=== PATIENT | female | born 1960 | race Caucasian/White ===

== ENCOUNTER → 2016-06-05 | Outpatient (CLI) | payer OTHER ==
[2016-06-05 14:37] LABS: Non-African American GFR(MDRD) >60 (>60 ml/min/1.73 sqM)
--- NOTE | 2016-06-05 15:46 | US ---
EXAMINATION TYPE: US kidneys/renal and bladder DATE OF EXAM: 06/05/2016 2:07 PM COMPARISON: Nuclear medicine Lasix renogram December 17, 2015. CLINICAL HISTORY: Hydronephrosis N13.5. Rt side stent placed on -- had it removed. Hx of LK tube. EXAM MEASUREMENTS: Right Kidney: 9.7 x 5.4 x 5.2 cm Left Kidney: 10.0 x 4.6 x 4.6 cm TECHNOLOGIST IMPRESSION: Right Kidney: wnl Left Kidney: medial anechoic lesion at hilum= 1.5 x 2.2 x 1.4 cm Bladder: mildly distended, wnl as visualized Right Jet seen There is no evidence for hydronephrosis at this point in time in the right kidney. There is pelvic pr ominence left kidney with suspected calyceal dilatation, suspect mild hydronephrosis. No nephrolithia sis is seen. No masses are identified on images saved. Bladder is poorly distended without intralumi nal mass or wall thickening. Distal right ureter jet is seen. The left jet is not clearly identified. IMPRESSION: Mild recurrent left-sided hydronephrosis is suspected.
== END | disposition home or self-care (01) ==
LOC: RADUSWWP 13:29
PROVIDERS: ATTEND Urology
DX: N35.9 Urethral stricture, unspecified (principal)
CPT/HCPCS: 36415; 76770; 82565

== ENCOUNTER → 2019-11-13 | Outpatient (CLI) | payer OTHER ==
[2019-11-13 14:38] LABS: HCT 37.3 % (34.0-46.0); HGB 12.3 gm/dL (11.4-16.0); MCV 93.9 fL (80.0-100.0); Mean Platelet Volume 8.7; Platelet Count 177 k/uL (150-450); RBC 3.97 m/uL (3.80-5.40); RDW 13.4 % (11.5-15.5); WBC 6.9 k/uL (3.8-10.6)
[2019-11-13 14:46] LABS: ALT 17 U/L (4-34); AST 18 U/L (14-36); African American GFR (CKD) >90 (>60 ml/min/1.73 sqM); Albumin 3.7 g/dL (3.5-5.0); Alkaline Phosphatase 109 U/L (38-126); Anion Gap 7 mmol/L; Blood Urea Nitrogen 15 mg/dL (7-17); Calcium 9.4 mg/dL (8.4-10.2); Carbon Dioxide 27 mmol/L (22-30); Chloride 105 mmol/L (98-107); Glucose 125 mg/dL (74-99); Non-African American GFR(CKD) 84 (>60 ml/min/1.73 sqM); Potassium 4.2 mmol/L (3.5-5.1); Sodium 139 mmol/L (137-145); Total Bilirubin 0.4 mg/dL (0.2-1.3); Total Protein 6.5 g/dL (6.3-8.2)
[2019-11-13 14:48] LABS: Appearance,Urine Clear (Clear); Bilirubin,Urine Negative (Negative); Blood,Urine Negative (Negative); Color,Urine Yellow; Glucose,Urine (UA) Negative (Negative); Ketones,Urine Negative (Negative); Leukocyte Esterase,Urine Large (Negative); Mucus,Urine Rare /hpf; Nitrite,Urine Negative (Negative); PH, Urine 7.5 (5.0-8.0); Protein,Urine Negative (Negative); RBC,Urine 1 /hpf (0-5); Specific Gravity,Urine 1.018 (1.001-1.035); Squamous Epithelial Cell,Urine 1 /hpf (0-4); Urobilinogen,Urine <2.0 mg/dL (<2.0); WBC,Urine 24 /hpf (0-5)
[2019-11-13 14:56] LABS: INR 0.9 (<1.2); Partial Thromboplastin Time 23.4 sec (22.0-30.0); Prothrombin Time 9.8 sec (9.0-12.0)
== END | disposition home or self-care (01) ==
LOC: LABPAT 12:54
PROVIDERS: ATTEND Orthopaedic Surgery
DX: Z01.810 Encounter for preprocedural cardiovascular examination (principal); Z01.812 Encounter for preprocedural laboratory examination
CPT/HCPCS: 36415; 80053; 81001; 85027; 85610; 85730; 87070; 93005

== ENCOUNTER 2019-12-12 07:26 | Day surgery (SDC) | payer OTHER ==
[2019-11-29 11:27] VITALS: BMI 41.0
[~2019-12-12 07:26] MED LIST: ACETAMINOPHEN TAB 500 MG TAB PO ONE; DEXAMETHASONE SOD PHOSPHATE 10 MG/ML 1 ML VIAL IV ONE; GABAPENTIN 300 MG CAP PO ONE; HYDROmorphone 0.5 MG/0.5 ML SYRINGE IVP PRN; LIDOCAINE 1% (10MG/ML) FOR IV START INTRADERMA PRN; MELOXICAM 7.5 MG TAB PO ONE; MIDAZOLAM 2 MG/2 ML VIAL IV PRN; ONDANSETRON 4 MG/2 ML VIAL IVP ONE; TRANEXAMIC ACID 1,000 MG in SODIUM CHLORIDE 0.9% 100 ML IVPB ONE; fentaNYL (PF) 50 MCG/ML 2 ML AMP IV PRN
[2019-12-12] MEDS ORDERED: ACETAMINOPHEN TAB 500 MG TAB ONE (07:44)
[2019-12-12] MEDS ORDERED: ONDANSETRON 4 MG/2 ML VIAL ONE (07:44)
[2019-12-12] MEDS: LACTATED RINGERS 1,000 ML IV SCH (08:22)
[2019-12-12] MEDS ORDERED: HYDROcodone/APAP 5-325MG 1 EACH TAB PO PRN (08:41)
[2019-12-12] MEDS ORDERED: MAGNESIUM HYDROXIDE 2,400 MG/10 ML CUP PO PRN (08:41)
[2019-12-12] MEDS ORDERED: bisacodyL 10 MG SUPP RECTAL PRN (08:41)
[2019-12-12] MEDS ORDERED: NA PHOS,M-B/NA PHOS,DI-BA 133 ML ENEMA RECTAL PRN (08:41)
[2019-12-12] MEDS ORDERED: NALOXONE 0.4 MG/ML 1 ML VIAL IV PRN (08:41)
[2019-12-12] MEDS ORDERED: ONDANSETRON 4 MG/2 ML VIAL IVP PRN (08:41)
[2019-12-12] MEDS ORDERED: HYDROmorphone 0.5 MG/0.5 ML SYRINGE IVP PRN ×2 (08:41)
[2019-12-12] MEDS ORDERED: HYDROmorphone 1 MG/ML 1 ML SYRINGE IVP PRN (08:41)
[2019-12-12] MEDS ORDERED: SODIUM CHLORIDE 0.9% 1,000 ML BAG ONE (09:08)
[2019-12-12] MEDS ORDERED: LIDOCAINE 1% INJ 10MG/ML (20 ML MDV) ONE (09:08)
[2019-12-12] MEDS ORDERED: PROPOFOL 10 MG/ML 20 ML VIAL IV ONE (09:08)
[2019-12-12] MEDS ORDERED: SUCCINYLCHOLINE CHLORIDE 100 MG/5 ML SYR IV ONE (09:08)
[2019-12-12] MEDS ORDERED: TRANEXAMIC ACID 1,000 MG/10 ML VIAL ONE (09:08)
[2019-12-12] MEDS ORDERED: MIDAZOLAM 2 MG/2 ML VIAL ONE (09:08)
[2019-12-12] MEDS ORDERED: fentaNYL (PF) 50 MCG/ML 2 ML AMP ONE (09:08)
[2019-12-12] MEDS ORDERED: ceFAZolin 3,000 MG in SODIUM CHLORIDE 0.9% IRRIGATIO 3,000 ML IRRIGATION ONE (09:11)
[2019-12-12] MEDS: ROPIVACAINE 246.25 MG, EPINEPHrine 0.5 MG, KETOROLAC 30 MG, cloNIDine HCL/PF 80 MCG, WA... MISCELLANE ONE ×10 (09:46→10:29)
--- NOTE | 2019-12-12 09:52 | P.ANPRN ---
Procedure Note - Anesthesia - Nerve Block Performed Left Adductor Canal Infusion Time Out Performed: Yes ([id number]) Date of Procedure: 12/12/19 Procedure Start Time: 08:45 Procedure Stop Time: 08:51 Location of Patient: PreOp Indication: Acute Post-Operative Pain, Requested by Surgeon Specifically requested for management of pain by DrShanon: Wilber Rodriguez Sedation Type: Sedate with meaningful contact maintained Preparation: Sterile Prep Position: Supine Catheter Depth at Skin (cm): 8 Catheter: Indwelling Needle Types: Pajunk Needle Gauge: 18 Ultrasound used to visualize needle placement: Yes Ultrasound used to observe medication spread: Yes Injectate: 0.5% Ropivacaine (see comment for volume) (20cc) Blood Aspirated: No Pain Paresthesia on Injection Noted: No Resistance on Injection: Normal Image Stored and Saved: Yes Events: Uneventful and Well Tolerated
[2019-12-12] MEDS ORDERED: LACTATED RINGERS 1,000 ML IV ONE (10:38)
--- NOTE | 2019-12-12 10:45 | P.OP ---
Date of Procedure: 12/12/19 Preoperative Diagnosis: Severe osteoarthritis left knee Postoperative Diagnosis: Severe osteoarthritis left knee Procedure(s) Performed: Left total knee arthroplasty Implants: [employer]hew Journey II CR Oxinium cruciate retaining femoral component size 4, left [employer] Journey left nonporous tibial baseplate size 3 [employer] Journey II, XLPE Deep Dished articular insert, size 11 mm, Size 3-4 left [employer] Journey BCS resurfacing oval patellar component, 29 mm All components were cemented using Palacos R bone cement.. The articulation is Oxinium on polyethylene. Anesthesia: GETA Surgeon: Wilber Rodriguez Propagator #1: Gabby Fields Estimated Blood Loss (ml): 25 Pathology: other Condition: stable Disposition: PACU Indications for Procedure: After failure of conservative treatment we discussed the surgical and nonsurgical treatment options at length. Patient wishes to proceed with a total knee arthroplasty. Complications specific to this procedure were discussed at length, including but not limited to infection, bleeding, stiffness, and nerve injury. Covid-19 was also discussed at length with the patient, and they are aware of the current policies and procedures. The patient was given the option of delaying surgery, but they elect to proceed knowing these risks. Patient is aware of all these complications and informed consent was obtained Operative Findings: The operative findings are consistent with severe osteoarthritis the left knee Description of Procedure: Patient was seen in the preoperative area consent was reviewed and operative site was marked with a skin marker. An adductor canal pain catheter was placed by anesthesia in the preoperative area. Patient was then brought to the operating room and given preoperative antibiotics intravenously. A general anesthetic was administered by the anesthesia department. A tourniquet was placed on the upper thigh and the lower extremity was prepped and draped in usual sterile fashion. A gram of transexamic acid was given. A universal timeout was then performed which confirmed the patient's name, surgical site, ALLERGIES, and consent. The lower extremity was then exsanguinated and tourniquet was inflated to 250 mmHg. A standard and anterior midline approach to the knee was performed. The skin and subcutaneous tissue was dissected down to the patellar tendon. A medial parapatellar arthrotomy was then performed. The knee was then extended, the patellar was everted, and the knee was again flexed. The patellar fat pad was removed in order to enhance exposure. Anterior horns of both menisci were excised, and a release was performed to the posterior medial aspect of the knee. On gross visual inspection, there was complete loss of articular cartilage in the medial and patellofemoral joint spaces. There was also significant cartilage damage in the lateral compartment. There were multiple periarticular osteophytes which were then removed with a Ronguer. The femoral canal was then opened with the 9.5 mm intramedullary drill. The 8 mm intramedullary lexi was then inserted into the femoral canal. The distal femoral cutting guide was then placed and set for 5 of valgus. The distal femoral cutting block was then pinned in place. The intramedullary lexi was then removed, and the distal femur was then cut. The cutting block was then removed and the cut was checked for symmetry. Next, the sizing guide was then placed and set for 3 external rotation based off of the epicondylar axis and Whitesides line. Pins were then placed and the drill holes, and the femur was sized with the sizing stylus. The pins were then removed, and the sizing guide was then removed. The spikes of the femoral block was then placed into the predrilled holes, and malleted into place. Two 45 mm pins were then placed into the fixation holes on the cutting block. An zulma wing was then used to ensure there would be no notching with the anterior cut. The anterior condyles were cut without notching. The anterior cord cut was then performed, followed by the posterior cut, posterior chamfer cut, and the anterior chamfer cut. The collateral ligaments were protected during the entire process. The cutting block was then removed, and the femoral canal was plugged with autologous bone. Attention was then directed to the tibia. The remaining ACL was removed with a Ronguer, and the tibia was then gently subluxed forward with a large bent knee retractor. Any remaining menisci was excised. The posterior lateral corner was cauterized in order to cauterize the lateral geniculate artery. The extra medullary tibial cutting guide was then placed, set for the appropriate rotation, slope, and depth of resection. The proximal tibia cutting guide was then pinned in place. Proximal tibia was then cut and sized. Next trials were then placed with the appropriate-sized insert. The knee was able to fully extend and flex to 130 and was stable throughout all range of motion. The knee was then extended, patella everted. Patella was then measured, and then using an osteotomy guide, the patella was cut at the appropriate level. The patella was then measured and drilled and the patella trial was then placed. The knee was then taken through range of motion with the patella trial and the patella tracked normally. The knee was then extended patella trial was then removed and the patella was everted. Knee was then flexed and lug holes were drilled through the femoral trial and the femoral trial was then removed. The tibial wa s then exposed, and the tibial broach guide was then pinned in place after it was set for the appropriate rotation to allow for the most coverage without overhang. The tibia was then reamed and broached. The cut surfaces of bone were then irrigated with pulsatile lavage. The posterior structures were injected with the ropivacaine solution. The knee was also irrigated with Irrisept solution. The components were then opened, the cement was mixed, and the components were then cemented in place. The cement was allowed to harden with the knee in full extension. While the cement was hardening, the remaining soft tissues were then injected with a ropivacaine solution, which consisted of 246.25 mg of ropivacaine, 0.5 mg of epinephrine, 30 mg of Toradol, 80 g of clonidine, and 48.45 mL of sterile water, for a total of 100 mL of fluid injected. After the cemented hardened. The tourniquet was released, and hemostasis was obtained. A second gram of transexamic acid was given. The knee was again irrigated. The knee was again taken through range of motion and found to be stable throughout all range of motion of 0-130, and the patella tracked normally. The fascia was then closed with #2 strata fix suture. The subcutaneous tissue was closed with 3-0 Vicryl and 3-0 strata fix. Dermabond glue was used for the skin and placed with the knee in flexion. The patient was placed in a sterile silver dressing. Patient was then transferred to recovery room in stable condition. The operating room assistant LISBETH Jay was required due the complexity surgery and the need for a skilled surgical technology instructor. She assisted in positioning, draping, retraction, and closure of the wound.
[2019-12-12] MEDS ORDERED: ROPIVACAINE 0.2%-NS ON-Q PUMP 1,090 MG, EMPTY PAIN BALL 1 EACH MISCELLANE PRN (11:12)
[2019-12-12 11:22] LABS: Glucose,Whole Blood 138 mg/dL (75-99)
--- NOTE | 2019-12-12 11:42 | XR ---
EXAMINATION TYPE: XR knee limited LT DATE OF EXAM: 12/12/2019 CLINICAL HISTORY: Postoperative evaluation Two views of the left knee are submitted. Identified are changes of total knee arthroplasty with fem oral and tibial components appearing well seated. Postsurgical soft tissue changes are noted. Align ment is anatomic.
[2019-12-12] MEDS: SODIUM CHLORIDE 0.9% 1,000 ML IV SCH ×2 (12:09→22:07)
--- NOTE | 2019-12-12 13:30 | P.CONS ---
History of Present Illness - Reason for Consult Consult date: 12/12/19 Medical management Requesting physician: Wilber Rodriguez - Chief Complaint Left knee surgery - History of Present Illness Consultation: This is a pleasant 59-year-old patient of Dr. Ash. Chronic stable medical conditions include diabetes, hypertension, daily heart syndrome, osteo- arthritis. Patient today underwent left total knee arthroplasty. Slight discomfort in the operative site. No nausea vomiting. Denies any chest pain or short of breath. at the bedside. On a liquid diet clear. Review of systems: GEN.: Tired EYES: None HEENT: None NECK: None RESPIRATORY: None CARDIOVASCULAR: None GASTROINTESTINAL: None GENITOURINARY: Urinary incontinence MUSCULOSKELETAL: Joint pains LYMPHATICS: None HEMATOLOGICAL: None PSYCHIATRY: None NEUROLOGICAL: None Past medical history to include: Diabetes mellitus, hypertension, osteoarthritis, abnormal lesions shaped kidney tubes,QT heart syndrome Social history: Does not smoke. Alcohol occasionally. . Physical examination: VITAL SIGNS: 97.2, 63, 12, 118/63, 97% on 4 L GENERAL: BMI 40.5, laying in bed sleepy. EYES: Pupils equal. Conjunctiva normal. HEENT: External appearance of nose and ears normal, oral cavity grossly normal. NECK: JVD not raised; masses not palpable. HEART: First and second heart sounds are normal; no edema. LUNGS: Respiratory rate normal; clear to auscultation. ABDOMEN: Soft, nontender, liver spleen not palpable, no masses palpable. PSYCH: Able to answer questions. Mood affect normall. MUSCULAR skeletal: Dressing over the left knee NEUROLOGICAL: Cranial nerves grossly intact; no facial asymmetry, power and sensation grossly intact. LYMPHATICS: No lymph nodes palpable in the axilla and neck INVESTIGATIONS, reviewed in the clinical context: Labs from November 12 White count 6.9 hemoglobin 12.3 potassium 4.2 creatinine 0.77 EKG tracing shows prolonged QT and flipped T waves Assessment: -Left total knee arthroplasty -Diabetes mellitus type 2 on oral hypoglycemic -QT heart syndrome -Essential hypertension -Primary osteoarthritis -Morbid Obesity BMI 40.5 Plan: Home medications to be resumed. Follow Accu-Cheks. Patient is in aspirin 325 mg twice a day for DVT prophylaxis per surgery. We'll keep the patient on telemetry monitoring. Care was discussed with the patient has been questions answered. Thank you Dr. Rodriguez Past Medical History Past Medical History: Diabetes Mellitus, Hypertension, Osteoarthritis (OA) Additional Past Medical History / Comment(s): hepatitis age 12, states abnormally shaped kidney tubes., states q-t heart syndrome. History of Any Multi-Drug Resistant Organisms: None Reported Past Surgical History: Section, Hysterectomy, Orthopedic Surgery Additional Past Surgical History / Comment(s): tubes and stents in kidneys and removed., x3, partial hysterectomy and then ovaries later removed. total left knee 11/2019 Past Anesthesia/Blood Transfusion Reactions: Postoperative Nausea & Vomiting (PONV) Past Psychological History: No Psychological Hx Reported Smoking Status: Never smoker Past Alcohol Use History: Occasional Past Drug Use History: None Reported - Past Family History Mother Family Medical History: Cancer Additional Family Medical History / Comment(s): uterine cancer Father Family Medical History: Cancer Additional Family Medical History / Comment(s): lung cancer Medications and Allergies Home Medications Medication Instructions Recorded Confirmed Type Aspirin [Adult Low Dose Aspirin EC] 81 mg PO DAILY 11/29/19 12/12/19 History Atorvastatin [Lipitor] 20 mg PO HS 11/29/19 12/12/19 History Cinnamon Bark [Cinnamon] 1,000 mg PO DAILY 11/29/19 12/12/19 History Furosemide [Lasix] 20 mg PO DAILY 11/29/19 12/12/19 History Garlic 1 each PO DAILY 11/29/19 12/12/19 History Glucosamine Sulfate 2,000 mg PO DAILY 11/29/19 12/12/19 History Irbesartan [Avapro] 150 mg PO DAILY 11/29/19 12/12/19 History Isosorbide Mononitrate [Isosorbide 30 mg PO DAILY 11/29/19 12/12/19 History Mononitrate ER] Magnesium 250 mg PO HS 11/29/19 12/12/19 History Milk Thistle 175 mg PO DAILY 11/29/19 12/12/19 History Naproxen Sodium [Aleve] 440 mg PO HS PRN 11/29/19 12/12/19 History Propranolol HCl 60 mg PO HS 11/29/19 12/12/19 History Ubidecarenone [Co Q-10] 50 mg PO DAILY 11/29/19 12/12/19 History metFORMIN HCL [Glucophage] 500 mg PO BID-W/MEALS 08/12/20 08/25/20 History Allergies Allergy/AdvReac Type Severity Reaction Status Date / Time azithromycin AdvReac Unknown states Verified 12/12/19 07:50 [From Zithromax Z-Sylvester] car shifter told her not to take. levofloxacin [From Levaquin] AdvReac Unknown states Verified 12/12/19 07:50 car shifter told her not to take. Narcotics AdvReac Unknown Rapid Uncoded 12/12/19 07:50 Heart Rate Physical Exam Vitals: Vital Signs Temp Pulse Resp BP Pulse Ox 12/12/19 11:33 61 16 129/69 97 12/12/19 11:18 62 14 125/67 97 12/12/19 11:03 97.2 F L 63 12 118/63 93 L 12/12/19 08:45 62 16 144/66 96 12/12/19 08:00 97.1 F L 64 16 143/82 95 Intake and Output 12/11/19 12/12/19 12/12/19 22:59 06:59 14:59 Intake Total 1501 Output Total 25 Balance 1476 Intake: IV 1501 Output: Estimated Blood Loss 25 Other: Weight 94 kg Results Labs: Abnormal Lab Results - Last 24 Hours (Table) 12/12/19 Range/Units 11:21 POC Glucose (mg/dL) 138 H (75-99) mg/dL
[2019-12-12] MEDS: HYDROcodone/APAP 5-325MG 1 EACH TAB PO PRN (15:06)
[2019-12-12 16:59] LABS: Glucose,Whole Blood 143 mg/dL (75-99)
[2019-12-12] MEDS: metFORMIN 500 MG TAB PO SCH (17:31)
[2019-12-12 20:41] LABS: Glucose,Whole Blood 200 mg/dL (75-99)
[2019-12-12] MEDS ORDERED: MAGNESIUM OXIDE 400 MG TAB PO SCH (21:00)
[2019-12-12] MEDS ORDERED: ATORVASTATIN 20 MG TAB PO SCH (21:00)
[2019-12-12] MEDS ORDERED: PROPRANOLOL 20 MG TAB PO SCH (21:00)
[2019-12-12] MEDS ORDERED: SENNOSIDES-DOCUSATE SODIUM 1 EACH TAB PO SCH (21:00)
[2019-12-12] MEDS: ASPIRIN 325 MG TAB PO SCH (21:53)
[2019-12-13] MEDS: LACTATED RINGERS 1,000 ML IV SCH (06:32)
[2019-12-13 07:06] LABS: Glucose,Whole Blood 117 mg/dL (75-99)
--- NOTE | 2019-12-13 07:17 | P.PN ---
Progress Note - Text Progress Note Date: 12/13/19 (493) Anesthesiology Postop day 1 status post total knee arthroplasty with adductor canal catheter. Patient doing well. VAS 0 out of 10. Gross strength intact in lower extremity. Afebrile. Denies alterations in sensorium. Catheter site intact. Heart regular rate Lungs nonlabored Abdomen nondistended Assessment: Postop day 1 status post total knee arthroplasty with adductor canal catheter Plan: All questions answered. Maintain catheter 2 more days with patient removal at home. Instructions were given at discharge.
[2019-12-13] MEDS: HYDROcodone/APAP 5-325MG 1 EACH TAB PO PRN (07:48)
[2019-12-13] MEDS: metFORMIN 500 MG TAB PO SCH (07:49)
[2019-12-13] MEDS: ASPIRIN 325 MG TAB PO SCH (07:49)
[2019-12-13 08:32] VITALS: BP 139/82; PULSE 60; RESP 17; TEMP 98.1
--- NOTE | 2019-12-13 08:38 | P.DS ---
Providers Expected date of discharge: 12/13/19 Attending physician: Wilber Rodriguez Consults: 12/12/19 08:41 Consult Physician Routine Consulting Provider: Jono Soto Consult Reason/Comments: medical management Do you want consulting provider notified?: Yes 12/12/19 18:51 Consult Physician Routine Consulting Provider: Marisol Mclcelland Consult Reason/Comments: second degree type 2 heart block Do you want consulting provider notified?: Yes Primary care physician: Steve Ash - Discharge Diagnosis(es) (1) Osteoarthritis of left knee Current Visit: Yes Status: Acute (2) Status post total left knee replacement Current Visit: Yes Status: Acute Hospital Course: This is a 59-year-old female with known history of degenerative arthritis of the left knee. The patient presents for evaluation. After discussion and consideration patient elects to proceed with total knee arthroplasty. The patient is seen preoperatively by Dr. Rodriguez and medically cleared for surgery by their primary care physician. Patient is admitted to [facility] on 12/12/2019 for total knee arthroplasty. The procedures performed without complication or sequelae. The patient is doing well postoperatively. Labs and vital signs are stable on day of discharge. On day of discharge patient's knee incision is healing well. There is minimal erythema. There is no drainage noted at this time. There is minimal soft tissue swelling to the knee. Patient has full foot and ankle motion without difficulty or pain. Calf is soft and nontender to palpation. Neurovascular status to the left lower extremity is intact. Patient is discharged home in good condition. Opioid start talking form is reviewed and signed at patient bedside. Please see med rec for accurate list of home medications. Plan - Discharge Summary Discharge Rx Participant: No New Discharge Prescriptions: New Aspirin 325 mg PO BID #60 tab HYDROcodone/APAP 5-325MG [Croghan 5-325] 1 - 2 tab PO Q6HR PRN #48 tab PRN Reason: Pain Sennosides [Senokot] 2 tab PO DAILY PRN #60 tablet PRN Reason: Constipation No Action Cinnamon Bark [Cinnamon] 1,000 mg PO DAILY Irbesartan [Avapro] 150 mg PO DAILY Atorvastatin [Lipitor] 20 mg PO HS metFORMIN HCL [Glucophage] 500 mg PO BID-W/MEALS Glucosamine Sulfate 2,000 mg PO DAILY Furosemide [Lasix] 20 mg PO DAILY Naproxen Sodium [Aleve] 440 mg PO HS PRN PRN Reason: Pain Isosorbide Mononitrate [Isosorbide Mononitrate ER] 30 mg PO DAILY Ubidecarenone [Co Q-10] 50 mg PO DAILY Propranolol HCl 60 mg PO HS Milk Thistle 175 mg PO DAILY Magnesium 250 mg PO HS Garlic 1 each PO DAILY Aspirin [Adult Low Dose Aspirin EC] 81 mg PO DAILY Discharge Medication List Aspirin [Adult Low Dose Aspirin EC] 81 mg PO DAILY 11/29/19 [History] Atorvastatin [Lipitor] 20 mg PO HS 11/29/19 [History] Cinnamon Bark [Cinnamon] 1,000 mg PO DAILY 11/29/19 [History] Furosemide [Lasix] 20 mg PO DAILY 11/29/19 [History] Garlic 1 each PO DAILY 11/29/19 [History] Glucosamine Sulfate 2,000 mg PO DAILY 11/29/19 [History] Irbesartan [Avapro] 150 mg PO DAILY 11/29/19 [History] Isosorbide Mononitrate [Isosorbide Mononitrate ER] 30 mg PO DAILY 11/29/19 [History] Magnesium 250 mg PO HS 11/29/19 [History] Milk Thistle 175 mg PO DAILY 11/29/19 [History] Naproxen Sodium [Aleve] 440 mg PO HS PRN 11/29/19 [History] Propranolol HCl 60 mg PO HS 11/29/19 [History] Ubidecarenone [Co Q-10] 50 mg PO DAILY 11/29/19 [History] metFORMIN HCL [Glucophage] 500 mg PO BID-W/MEALS 11/29/19 [History] Aspirin 325 mg PO BID #60 tab 12/13/19 [Rx] HYDROcodone/APAP 5-325MG [Croghan 5-325] 1 - 2 tab PO Q6HR PRN #48 tab 12/13/19 [Rx] Sennosides [Senokot] 2 tab PO DAILY PRN #60 tablet 12/13/19 [Rx] Follow up Appointment(s)/Referral(s): Wilber Rodriguez DO [Doctor of Osteopathic Medicine] - 2 Weeks Activity/Diet/Wound Care/Special Instructions: Weightbearing as tolerated with a walker. CPM 5-6h daily. Leave dressing intact. May be removed by home care nurse or by patient in 10 days. May shower with dressing on. Recommend use of compression stockings daily until follow up to help prevent swelling and blood clots. May remove at night before sleeping. Please take aspirin 325mg twice daily for 30 days to prevent blood clots. Please follow up with [facility] and call with any questions or concerns, . Discharge Disposition: HOME WITH HOME HEALTH SERVICES
[2019-12-13] MEDS ORDERED: ISOSORBIDE MONONITRATE ER 30 MG TAB.ER.24H PO SCH (09:00)
[2019-12-13] MEDS ORDERED: MELOXICAM 7.5 MG TAB PO SCH (09:00)
[2019-12-13] MEDS ORDERED: LOSARTAN 50 MG TAB PO SCH (09:00)
[2019-12-13 09:04] LABS: Basophils % (A) 0 %; Eosinophils % (A) 0 %; HCT 36.8 % (34.0-46.0); HGB 11.8 gm/dL (11.4-16.0); Lymphocytes # (A) 1.6 k/uL (1.0-4.8); Lymphocytes % (A) 14 %; MCH 30.5 pg (25.0-35.0); MCHC 32.2 g/dL (31.0-37.0); MCV 94.9 fL (80.0-100.0); Mean Platelet Volume 9.1; Monocytes # (A) 0.7 k/uL (0-1.0); Monocytes % (A) 6 %; Neutrophils # (A) 8.9 k/uL (1.3-7.7); Neutrophils % (A) 78 %; Platelet Count 160 k/uL (150-450); RBC 3.88 m/uL (3.80-5.40); RDW 13.4 % (11.5-15.5); WBC 11.4 k/uL (3.8-10.6)
--- NOTE | 2019-12-13 10:25 | P.CRDCN ---
History of Present Illness Consult date: 12/13/19 Requesting physician: Jono Soto Reason for Consult (text): second degree type 2 heart block Chief complaint: s/p left TKA History of present illness: this is a pleasant 59-year-old female patient who follows with Dr. Avalos for cardiology. she has a history of hypertension, hyperlipidemia, diabetes and prolonged QT. According to the patient she underwent cardiac workup including an echo and a stress test about 2 years ago which were unremarkable. She follows regularly with her behavioral health aide. She came in for elective left total knee. Postoperatively while she was on the nursing unit she was noted to have an episode of bradycardia with second-degree AV block with 2:1 conduction. she was asymptomatic at the time. She believes she was awake but had no symptoms of dizziness, lightheadedness, palpitations. She's had no chest discomfort, shortness of breath, orthopnea or edema.she is currently on metformin, co-every 10, propranolol, Aleve, magnesium, isosorbide, irbesartan, glucosamine, Lasix, Lipitor, Layton for pain and aspirin as directed by orthopedics. vital signs have been stable she's been afebrile. She did have one reading of 162/73 with the blood pressure but this morning was improved at 139/82. 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 History of Any Multi-Drug Resistant Organisms: None Reported Past Surgical History: Section, Hysterectomy, Orthopedic Surgery Additional Past Surgical History / Comment(s): tubes and stents in kidneys and removed., x3, partial hysterectomy and then ovaries later removed. total left knee 11/2019 Past Anesthesia/Blood Transfusion Reactions: Postoperative Nausea & Vomiting (PONV) Past Psychological History: No Psychological Hx Reported Smoking Status: Never smoker Past Alcohol Use History: Occasional Past Drug Use History: None Reported - Past Family History Mother Family Medical History: Cancer Additional Family Medical History / Comment(s): uterine cancer Father Family Medical History: Cancer Additional Family Medical History / Comment(s): lung cancer Medications and Allergies Home Medications Medication Instructions Recorded Confirmed Type Aspirin [Adult Low Dose Aspirin EC] 81 mg PO DAILY 11/29/19 12/12/19 History Atorvastatin [Lipitor] 20 mg PO HS 11/29/19 12/12/19 History Cinnamon Bark [Cinnamon] 1,000 mg PO DAILY 11/29/19 12/12/19 History Furosemide [Lasix] 20 mg PO DAILY 11/29/19 12/12/19 History Garlic 1 each PO DAILY 11/29/19 12/12/19 History Glucosamine Sulfate 2,000 mg PO DAILY 11/29/19 12/12/19 History Irbesartan [Avapro] 150 mg PO DAILY 11/29/19 12/12/19 History Isosorbide Mononitrate [Isosorbide 30 mg PO DAILY 11/29/19 12/12/19 History Mononitrate ER] Magnesium 250 mg PO HS 11/29/19 12/12/19 History Milk Thistle 175 mg PO DAILY 11/29/19 12/12/19 History Naproxen Sodium [Aleve] 440 mg PO HS PRN 11/29/19 12/12/19 History Propranolol HCl 60 mg PO HS 11/29/19 12/12/19 History Ubidecarenone [Co Q-10] 50 mg PO DAILY 11/29/19 12/12/19 History metFORMIN HCL [Glucophage] 500 mg PO BID-W/MEALS 11/29/19 12/12/19 History Aspirin 325 mg PO BID #60 tab 12/13/19 Rx HYDROcodone/APAP 5-325MG [Layton 1 - 2 tab PO Q6HR PRN #48 tab 12/13/19 Rx 5-325] Sennosides [Senokot] 2 tab PO DAILY PRN #60 tablet 12/13/19 Rx Allergies Allergy/AdvReac Type Severity Reaction Status Date / Time azithromycin AdvReac Unknown states Verified 12/12/19 07:50 [From Zithromax Z-Sylvester] behavioral health aide told her not to take. levofloxacin [From Levaquin] AdvReac Unknown states Verified 12/12/19 07:50 behavioral health aide told her not to take. Narcotics AdvReac Unknown Rapid Uncoded 12/12/19 07:50 Heart Rate Physical Exam Vitals: Vital Signs Temp Pulse Resp BP Pulse Ox 12/13/19 07:00 98.1 F 60 17 139/82 100 12/13/19 02:03 97.8 F 55 L 18 162/73 98 12/12/19 23:45 97.6 F 69 16 134/79 12/12/19 15:00 97.6 F 65 18 126/74 96 12/12/19 14:00 67 129/70 96 12/12/19 13:45 65 126/74 97 12/12/19 13:30 67 126/75 96 12/12/19 13:15 61 129/72 96 12/12/19 13:00 68 134/80 97 12/12/19 12:45 57 L 135/81 96 12/12/19 12:30 56 L 132/78 96 12/12/19 12:15 55 L 128/72 95 12/12/19 12:00 97.6 F 55 L 16 136/71 95 12/12/19 11:33 61 16 129/69 97 12/12/19 11:18 62 14 125/67 97 12/12/19 11:03 97.2 F L 63 12 118/63 93 L Intake and Output 12/12/19 12/13/19 12/13/19 22:59 06:59 14:59 Output Total 250 Balance -250 Output: Urine 250 Other: # Voids 3 1 PHYSICAL EXAMINATION: This is a 59-year-old female in no apparent distress at the time of my examination. VITAL SIGNS: Blood pressure and 39/82, heart rate 60, respirations 17, temp 98.1F. Patient is 100% on liters. HEENT: Head is atraumatic, normocephalic. Pupils are equal, round. Sclerae anicteric. Conjunctivae are clear. Mucous membranes of the mouth are moist. Neck is supple. There is no elevated jugular venous pressure. No carotid bruit is heard. CHEST EXAMINATION: Clear to auscultation bilaterally. No wheezes rales or rhonchi. Respirations even and nonlabored. HEART EXAMINATION: Heart regular, positive S1 and S2 with a soft systolic murmur. ABDOMEN: Soft, nontender. Bowel sounds are heard. No organomegaly noted. EXTREMITIES: 2+ peripheral pulses with no evidence of peripheral edema and no calf tenderness noted. dressing dry and intact to left knee. SCD noted to right lower extremity. NEUROLOGIC EXAMINATION: Patient is awake, alert and oriented x3. Results 12/13/19 07:57 CBC 12/13/19 Range/Units 07:57 WBC 11.4 H (3.8-10.6) k/uL RBC 3.88 (3.80-5.40) m/uL Hgb 11.8 (11.4-16.0) gm/dL Hct 36.8 (34.0-46.0) % Plt Count 160 (150-450) k/uL Current Medications Generic Name Dose Route Start Last Admin Trade Name Freq PRN Reason Stop Dose Admin Hydrocodone Bitart/Acetaminophen 1 each 12/12/19 08:41 12/13/19 00:09 Layton 5-325 PO 1 each Q6HR PRN Administration Pain Scale 1 to 5 Hydrocodone Bitart/Acetaminophen 2 each 12/12/19 08:41 12/13/19 07:48 Layton 5-325 PO 2 each Q6HR PRN Administration Pain Scale 6 to 10 Aspirin 325 mg 12/12/19 21:00 12/13/19 07:49 Aspirin PO 325 mg BID KIM Administration Atorvastatin Calcium 20 mg 12/12/19 21:00 12/12/19 21:54 Lipitor PO 20 mg HS KIM Administration Bisacodyl 10 mg 12/12/19 08:41 Dulcolax RECTAL DAILY PRN Constipation Ropivacaine 1,090 mg/ Bandage/ 0 mg 12/12/19 11:12 12/12/19 11:38 Support Products 1 each MISCELLANE 1,090 mg Q2H PRN Administration Breakthrough Pain Hydromorphone HCl 0.25 mg 12/12/19 08:41 Dilaudid IVP Q3HR PRN Pain Scale 1 to 3 Hydromorphone HCl 0.5 mg 12/12/19 08:41 Dilaudid IVP Q3HR PRN Pain Scale 4 to 6 Hydromorphone HCl 1 mg 12/12/19 08:41 Dilaudid IVP Q3HR PRN Pain Scale 7 to 10 Lactated Ringer's 1,000 mls @ 20 mls/hr 12/12/19 05:22 12/13/19 06:32 Lactated Ringers IV Not Given .Q24H KIM Sodium Chloride 1,000 mls @ 70 mls/hr 12/12/19 08:45 12/12/19 22:07 Saline 0.9% IV 70 mls/hr .[id number] KIM Administration Isosorbide Mononitrate 30 mg 12/13/19 09:00 12/13/19 07:49 Imdur PO 30 mg DAILY KIM Administration Lidocaine HCl 0.1 ml 12/12/19 05:22 .Xylocaine 1% Inj (10mg/Ml) For Iv Start INTRADERMA PER PROTOCOL PRN IV Start Losartan Potassium 50 mg 12/13/19 09:00 12/13/19 07:49 Cozaar PO 50 mg DAILY KIM Administration Magnesium Hydroxide 2,400 mg 12/12/19 08:41 Milk Of Magnesia PO DAILY PRN Constipation Magnesium Oxide 400 mg 12/12/19 21:00 12/12/19 21:53 Mag-Ox PO 400 mg HS KIM Administration Meloxicam 7.5 mg 12/13/19 09:00 12/13/19 07:49 Mobic PO 7.5 mg DAILY KIM Administration Metformin HCl 500 mg 12/12/19 17:30 12/13/19 07:49 Glucophage PO 500 mg BID-W/MEALS KIM Administration Naloxone HCl 0.2 mg 12/12/19 08:41 Narcan IV Q2M PRN Opioid Reversal Ondansetron HCl 4 mg 12/12/19 08:41 Zofran IVP Q8HR PRN Nausea And Vomiting Propranolol HCl 60 mg 12/12/19 21:00 12/12/19 21:53 Inderal PO 60 mg HS KIM Administration Senna/Docusate Sodium 2 each 12/12/19 21:00 12/12/19 22:05 Senokot-S PO Not Given HS KIM Sodium Biphosphate/Sodium Phosphate 133 ml 12/12/19 08:41 Fleet Adult RECTAL DAILY PRN Constipation Intake and Output 12/12/19 12/13/19 12/13/19 22:59 06:59 14:59 Output Total 250 Balance -250 Output: Urine 250 Other: # Voids 3 1 12/13/19 07:57 Assessment and Plan Assessment: #1 second degree AV block, 2:1 conduction, likely type II #2 status post Left TKA #3 long QT syndrome #4 hypertension #5 hyperlipidemia #6 diabetes Plan: From cardiology's perspective, no further inpatient workup is needed at this time. The patient will be scheduled to follow-up with her primary behavioral health aide as an outpatient. We would recommend outpatient cardiac monitoring. Thank you for this consultation please do not hesitate to contact us with questions. COP BREAKER note has been reviewed, I agree with a documented findings and plan of care. Patient was seen and examined.
--- NOTE | 2019-12-13 19:50 | P.PN ---
Progress Note - Text Progress Note Date: 12/13/19 - Chief Complaint Left knee surgery Consultation: This is a pleasant 59-year-old patient of Dr. Ash. Chronic stable medical conditions include diabetes, hypertension, daily heart syndrome, osteo- arthritis. underwent left total knee arthroplasty. Today-patient doing well. Pain control. Did work with therapy. No new issues. Telemetry showed second degree block. Cardiology was consulted. They recommended for patient to follow-up with her senior business development analyst. Otherwise patient is asymptomatic. Review of systems: Was done for constitutional, cardiovascular, GI, pulmonary. relevant finding as above Current medications reviewed in today's electronic records Physical examination: VITAL SIGNS: 98.1, 60, 17, 139/82, 98% on room air GENERAL: Sitting up, comfortable EYES: Pupils equal. Conjunctiva normal. NECK: JVD not raised; masses not palpable. HEART: First and second heart sounds are normal; no edema. LUNGS: Respiratory rate normal; clear to auscultation. ABDOMEN: Soft, nontender, liver spleen not palpable, no masses palpable. PSYCH: Able to answer questions. Mood affect normall. MUSCULAR skeletal: Dressing over the left knee INVESTIGATIONS, reviewed in the clinical context: White count 11.4 hemoglobin 11.8 Labs from November 12 White count 6.9 hemoglobin 12.3 potassium 4.2 creatinine 0.77 EKG tracing shows prolonged QT and flipped T waves Assessment: -Left total knee arthroplasty -Diabetes mellitus type 2 on oral hypoglycemic -Prolonged QT interval syndrome -Essential hypertension -Primary osteoarthritis -Morbid Obesity BMI 40.5 -Second degree AV block to his 2:1 conduction Plan: Continue current medication treatment plan. Per cardiology patient to follow-up with her own senior business development analyst. Discussed with the patient. Thank you Dr. Rodriguez
== END 2019-12-13 13:19 | disposition home health service (06) ==
LOC: OR 07:26 → 4SSUR 11:00 → OR 12-13 13:19
PROVIDERS: ATTEND Orthopaedic Surgery
DX: M17.12 Unilateral primary osteoarthritis, left knee (principal); M25.762 Osteophyte, left knee; I44.1 Atrioventricular block, second degree; I45.81 Long QT syndrome; I11.9 Hypertensive heart disease without heart failure; E78.2 Mixed hyperlipidemia; E11.9 Type 2 diabetes mellitus without complications; E66.01 Morbid (severe) obesity due to excess calories; Q63.8 Other specified congenital malformations of kidney; R00.1 Bradycardia, unspecified; J45.909 Unspecified asthma, uncomplicated; Z79.899 Other long term (current) drug therapy; Z79.82 Long term (current) use of aspirin; Z79.84 Long term (current) use of oral hypoglycemic drugs; Z79.1 Long term (current) use of non-steroidal anti-inflammatories (NSAID); Z97.3 Presence of spectacles and contact lenses; Z86.19 Personal history of other infectious and parasitic diseases; Z98.890 Other specified postprocedural states; Z90.710 Acquired absence of both cervix and uterus; Z87.442 Personal history of urinary calculi; Z87.42 Personal history of other diseases of the female genital tract; Z87.448 Personal history of other diseases of urinary system; Z90.722 Acquired absence of ovaries, bilateral; Z91.89 Other specified personal risk factors, not elsewhere classified; Z88.1 Allergy status to other antibiotic agents; Z88.5 Allergy status to narcotic agent; Z68.41 Body mass index [BMI] 40.0-44.9, adult; Z82.49 Family history of ischemic heart disease and other diseases of the circulatory system; Z83.3 Family history of diabetes mellitus; Z80.8 Family history of malignant neoplasm of other organs or systems; Z80.1 Family history of malignant neoplasm of trachea, bronchus and lung; Z82.3 Family history of stroke; Z80.3 Family history of malignant neoplasm of breast
CPT/HCPCS: 27447; 97110; 64448; 76942; 85025; 88300; 73560; C1713; C1776; J2250; J0171; J1100; J0690 ×3; J2405; J2001; J3010; J1885; J2795 ×2; J0330; J2704; J0735

== ENCOUNTER 2020-02-03 14:26 | Observation (INO) | payer OTHER ==
--- NOTE | 2020-02-03 14:53 | ED ---
Recheck HPI - General Chief Complaint: Syncope Stated Complaint: Cardiac Issues Transfer from [facility] Time Seen by Provider: 02/03/20 14:35 Source: patient, EMS, RN notes reviewed, old records reviewed Mode of arrival: EMS Limitations: no limitations - History of Present Illness Initial Comments: This is a 59-year-old female DF for evaluation patient Dese for evaluation regarding syncopal event does recheck if she was evaluated prior hospital in transfer to this hospital for syncope and bradycardia. Patient was bradycardic at [facility] given atropine bradycardia resolved. Currently patient feels relatively asymptomatic MD Complaint: other (Bradycardia and syncope) -: hour(s) Returns Today for: other (Patient sent ER for further evaluation management here in our hospital) Symptoms Since Prior Visit: no new symptoms Associated Symptoms: none - Related Data Home Medications Medication Instructions Recorded Confirmed Atorvastatin [Lipitor] 20 mg PO HS 11/29/19 02/03/20 Cinnamon Bark [Cinnamon] 1,000 mg PO DAILY 11/29/19 02/03/20 Furosemide [Lasix] 20 mg PO DAILY 11/29/19 02/03/20 Irbesartan [Avapro] 150 mg PO DAILY 11/29/19 02/03/20 Isosorbide Mononitrate [Isosorbide 30 mg PO DAILY 11/29/19 02/03/20 Mononitrate ER] Milk Thistle 150 mg PO DAILY 11/29/19 02/03/20 Propranolol HCl 60 mg PO HS 11/29/19 02/03/20 metFORMIN HCL [Glucophage] 500 mg PO BID-W/MEALS 11/29/19 02/03/20 Acetaminophen Tab [Tylenol Tab] 500 mg PO Q6HR PRN 02/03/20 02/03/20 Cephalexin [Keflex] 500 mg PO QID 02/03/20 02/03/20 Magnesium Oxide 400 mg PO HS 02/03/20 02/03/20 Turmeric Root Extract [Turmeric] 500 mg PO DAILY 02/03/20 02/03/20 Allergies Allergy/AdvReac Type Severity Reaction Status Date / Time azithromycin AdvReac Unknown states Verified 02/03/20 14:47 [From Zithromax Z-Sylvester] tie buyer told her not to take. levofloxacin [From Levaquin] AdvReac Unknown states Verified 02/03/20 14:47 tie buyer told her not to take. Narcotics AdvReac Unknown Rapid Uncoded 02/03/20 14:47 Heart Rate, Insomnia Review of Systems ROS Statement: Those systems with pertinent positive or pertinent negative responses have been documented in the HPI. ROS Other: All systems not noted in ROS Statement are negative. Past Medical History Past Medical History: Diabetes Mellitus, Hyperlipidemia, Hypertension History of Any Multi-Drug Resistant Organisms: None Reported Past Surgical History: Section, Hysterectomy, Orthopedic Surgery Additional Past Surgical History / Comment(s): tubes and stents in kidneys and removed., x3, partial hysterectomy and then ovaries later removed. total left knee 11/2019 Past Psychological History: No Psychological Hx Reported Smoking Status: Never smoker Past Alcohol Use History: None Reported Past Drug Use History: None Reported General Exam Limitations: no limitations General appearance: alert, in no apparent distress Head exam: Present: atraumatic, normocephalic, normal inspection Eye exam: Present: normal appearance, PERRL, EOMI. Absent: scleral icterus, conjunctival injection, periorbital swelling ENT exam: Present: normal exam, mucous membranes moist Neck exam: Present: normal inspection. Absent: tenderness, meningismus, lymphadenopathy Respiratory exam: Present: normal lung sounds bilaterally. Absent: respiratory distress, wheezes, rales, rhonchi, stridor Cardiovascular Exam: Present: regular rate, normal rhythm, normal heart sounds. Absent: systolic murmur, diastolic murmur, rubs, gallop, clicks GI/Abdominal exam: Present: soft, normal bowel sounds. Absent: distended, tenderness, guarding, rebound, rigid Extremities exam: Present: normal inspection, full ROM, normal capillary refill. Absent: tenderness, pedal edema, joint swelling, calf tenderness Back exam: Present: normal inspection Neurological exam: Present: alert, oriented X3, CN II-XII intact Psychiatric exam: Present: normal affect, normal mood Skin exam: Present: warm, dry, intact, normal color. Absent: rash Course Vital Signs 02/03/20 14:27 Temperature 98.0 F Pulse Rate 81 Respiratory 18 Rate Blood Pressure 138/72 O2 Sat by Pulse 99 Oximetry - Reevaluation(s) Reevaluation #1: 02/03/20 14:58 Medical record and transfer paperwork is reviewed Reevaluation #2: 02/03/20 14:58 Patient informed of plan of action care, questions answered Medical Decision Making - Medical Decision Making 59 female DF for evaluation of a syncopal event, patient was found to be bradycardic given atropine bradycardia resolved. Patient be admitted to telemetry for evaluation by cardiology Disposition Clinical Impression: Bradycardia, Syncope Disposition: ADMITTED IP TO THIS HOSP Condition: Serious Is patient prescribed a controlled substance at d/c from ED?: No Referrals: Steve Ash MD [Primary Care Provider] - 1-2 days
[2020-02-03] MEDS ORDERED: NITROGLYCERIN SL TABS 0.4 MG TAB SUBLINGUAL PRN (14:56)
[2020-02-03] MEDS ORDERED: diphenhydrAMINE 50 MG/ML 1 ML VIAL IVP STA (17:42)
[2020-02-03 19:56] LABS: Glucose,Whole Blood 131 mg/dL (75-99)
[2020-02-03] MEDS: MAGNESIUM OXIDE 400 MG TAB PO SCH (20:58)
[2020-02-03] MEDS: ATORVASTATIN 20 MG TAB PO SCH (20:58)
[2020-02-03] MEDS: CEPHALEXIN 500 MG CAP PO SCH (20:59)
[2020-02-03] MEDS ORDERED: PROPRANOLOL 20 MG TAB PO SCH (21:00)
[2020-02-03] MEDS: ACETAMINOPHEN TAB 500 MG TAB PO PRN (21:08)
[2020-02-04] MEDS: ACETAMINOPHEN TAB 500 MG TAB PO PRN (05:48)
[2020-02-04 05:59] LABS: Cholesterol 124 mg/dL (<200); HDL Cholesterol 47 mg/dL (40-60); LDL Cholesterol,Calculated 48 mg/dL (0-99); Triglycerides 146 mg/dL (<150)
[2020-02-04 06:59] LABS: Glucose,Whole Blood 161 mg/dL (75-99)
[2020-02-04] MEDS: ASPIRIN 325 MG TAB PO SCH (08:24)
[2020-02-04] MEDS: metFORMIN 500 MG TAB PO SCH ×2 (08:24→17:27)
[2020-02-04] MEDS: CEPHALEXIN 500 MG CAP PO SCH (08:44)
[2020-02-04] MEDS: ISOSORBIDE MONONITRATE ER 30 MG TAB.ER.24H PO SCH (08:44)
[2020-02-04] MEDS: LOSARTAN 50 MG TAB PO SCH (08:44)
[2020-02-04] MEDS: FUROSEMIDE 20 MG TAB PO SCH (08:44)
[2020-02-04] MEDS ORDERED: NON FORMULARY DRUG (Cinnamon Bark [Cinnamon] 500 MG Capsule) PO SCH (09:00)
[2020-02-04] MEDS ORDERED: NON FORMULARY DRUG (Turmeric Root Extract [Turmeric] 500 MG Capsule) PO SCH (09:00)
[2020-02-04] MEDS ORDERED: NON FORMULARY DRUG (Milk Thistle [Milk Thistle] 150 MG Capsule) PO SCH (09:00)
[2020-02-04] MEDS ORDERED: diphenhydrAMINE 25 MG CAP PO STA ×2 (09:33→23:15)
[2020-02-04] MEDS: methylPREDNISolone SOD SUCCI 40 MG/ML 1 ML VIAL IV SCH ×2 (11:14→16:27)
[2020-02-04] MEDS: diphenhydrAMINE 25 MG CAP PO SCH ×2 (11:14→17:27)
[2020-02-04 12:49] LABS: Glucose,Whole Blood 148 mg/dL (75-99)
--- NOTE | 2020-02-04 13:01 | P.CRDCN ---
History of Present Illness Consult date: 02/04/20 History of present illness: This is a 59-year-old female is a to be followed by Dr. Avalos. Patient has history of prolonged QT interval and also being treated with propranolol 60 mg at bedtime. Recently patient had a knee surgery and at that time she was found to have episodes of second-degree AV block but patient was asymptomatic. Patient was sent home on antibiotic Keflex. Patient has developed significant macular rash and itching. Yesterday patient started to go to bathroom and felt dizzy. After using the bathroom. Apparently patient fell and lost consciousness According to patient's . Patient was unconscious for about 10 minutes. Subsequently she was taken to the emergency room of the [facility]. She was found to have episodes of bradycardia associated with dizziness seemed to mostly junctional rhythm. Subsequently she was transferred here for further evaluation. Since coming here patient hasn't had any significant symptomatic episodes. It appears that patient may have sick sinus syndrome. We will discontinue her Inderal. Patient also being treated for the rash. We'll going to discontinue Keflexand may have to substitute with a different antibiotics if necessary. We'll continue to monitor her. If necess duc, patient could be considered for permanent pacemaker implantation. Review of Systems as per the chart Past Medical History Past Medical History: Diabetes Mellitus, Hyperlipidemia, Hypertension History of Any Multi-Drug Resistant Organisms: None Reported Past Surgical History: Section, Hysterectomy, Orthopedic Surgery Additional Past Surgical History / Comment(s): tubes and stents in kidneys and removed., x3, partial hysterectomy and then ovaries later removed. total left knee 11/2019 Past Psychological History: No Psychological Hx Reported Smoking Status: Never smoker Past Alcohol Use History: None Reported Past Drug Use History: None Reported Medications and Allergies Home Medications Medication Instructions Recorded Confirmed Type Atorvastatin [Lipitor] 20 mg PO HS 11/29/19 02/03/20 History Cinnamon Bark [Cinnamon] 1,000 mg PO DAILY 11/29/19 02/03/20 History Furosemide [Lasix] 20 mg PO DAILY 11/29/19 02/03/20 History Irbesartan [Avapro] 150 mg PO DAILY 11/29/19 02/03/20 History Isosorbide Mononitrate [Isosorbide 30 mg PO DAILY 11/29/19 02/03/20 History Mononitrate ER] Milk Thistle 150 mg PO DAILY 11/29/19 02/03/20 History Propranolol HCl 60 mg PO HS 11/29/19 02/03/20 History metFORMIN HCL [Glucophage] 500 mg PO BID-W/MEALS 11/29/19 02/03/20 History Acetaminophen Tab [Tylenol Tab] 500 mg PO Q6HR PRN 02/03/20 02/03/20 History Cephalexin [Keflex] 500 mg PO QID 02/03/20 02/03/20 History Magnesium Oxide 400 mg PO HS 02/03/20 02/03/20 History Turmeric Root Extract [Turmeric] 500 mg PO DAILY 02/03/20 02/03/20 History Allergies Allergy/AdvReac Type Severity Reaction Status Date / Time azithromycin AdvReac Unknown states Verified 02/03/20 14:47 [From Zithromax Z-Sylvester] plant tour guide told her not to take. levofloxacin [From Levaquin] AdvReac Unknown states Verified 02/03/20 14:47 plant tour guide told her not to take. Narcotics AdvReac Unknown Rapid Uncoded 02/03/20 14:47 Heart Rate, Insomnia Physical Exam Vitals: Vital Signs Temp Pulse Pulse Resp BP BP Pulse Ox 02/04/20 09:00 97.9 F 81 18 92/61 96 02/04/20 03:00 99.1 F 71 17 112/67 100 02/03/20 21:00 97.9 F 98 16 126/65 99 02/03/20 17:40 100 18 141/67 98 02/03/20 16:00 89 20 150/72 97 02/03/20 15:30 86 18 137/73 97 02/03/20 15:00 86 15 138/71 99 02/03/20 14:27 98.0 F 81 18 138/72 99 Intake and Output 02/03/20 02/04/20 02/04/20 22:59 06:59 14:59 Intake Total 320 160 Balance 320 160 Intake: Oral 320 160 Other: Voiding Method Toilet Toilet Toilet # Voids 1 1 Weight 94.801 kg GENERAL EXAM: Patient is alert and oriented and doesn't appear to be in any acute distress HEENT: Normocephalic. Normal reaction of pupils, equal size, normal range of extraocular motion. No erythema or exudates in the throat. NECK: No masses, no nuchal rigidity. CHEST: No chest wall deformity. LUNGS: [Equal air entry with no crackles or wheeze.] HEART: [S1 and S2 normal with no audible mumurs or gallops. Regular rhythm, femorals equal on both sides..] ABDOMEN: No hepatosplenomegaly, normal bowel sounds, no guarding or rigidity. SKIN: Diffuse macular rash involving the whole torso CENTRAL NERVOUS SYSTEM: No focal deficits. EXTREMITIES: [No cyanosis, clubbing or edema.] Results Cardiac Enzymes 02/03/20 02/03/20 Range/Units 17:36 23:25 Troponin I <0.012 <0.012 (0.000-0.034) ng/mL Lipids 02/04/20 Range/Units 05:19 Triglycerides 146 (<150) mg/dL Cholesterol 124 (<200) mg/dL HDL Cholesterol 47 (40-60) mg/dL Current Medications Generic Name Dose Route Start Last Admin Trade Name Freq PRN Reason Stop Dose Admin Acetaminophen 500 mg 02/03/20 19:37 02/04/20 05:48 Acetaminophen Tab 500 Mg Tab PO 500 mg Q6HR PRN Administration Pain Aspirin 325 mg 02/04/20 09:00 02/04/20 08:24 Aspirin 325 Mg Tab PO 325 mg DAILY KIM Administration Atorvastatin Calcium 20 mg 02/03/20 21:00 02/03/20 20:58 Atorvastatin 20 Mg Tab PO 20 mg HS KIM Administration Diphenhydramine HCl 50 mg 02/04/20 12:00 02/04/20 11:14 Diphenhydramine 25 Mg Cap PO 50 mg Q6HR KIM Administration Famotidine 20 mg 02/04/20 21:00 Famotidine 20 Mg/2 Ml Vial IV Q12HR KIM Furosemide 20 mg 02/04/20 09:00 02/04/20 08:44 Furosemide 20 Mg Tab PO Not Given DAILY KIM Isosorbide Mononitrate 30 mg 02/04/20 09:00 02/04/20 08:44 Isosorbide Mononitrate Er 30 Mg Tab.Er.24h PO Not Given DAILY KIM Losartan Potassium 50 mg 02/04/20 09:00 02/04/20 08:44 Losartan 50 Mg Tab PO Not Given DAILY KIM Magnesium Oxide 400 mg 02/03/20 21:00 02/03/20 20:58 Magnesium Oxide 400 Mg Tab PO 400 mg HS KIM Administration Metformin HCl 500 mg 02/04/20 07:30 02/04/20 08:24 Metformin 500 Mg Tab PO 500 mg BID-W/MEALS KIM Administration Methylprednisolone Sodium Succinate 40 mg 02/04/20 10:15 02/04/20 11:14 Methylprednisolone Sod Succi 40 Mg/Ml 1 Ml Vial IV 40 mg Q8HR KIM Administration Nitroglycerin 0.4 mg 02/03/20 14:56 Nitroglycerin Sl Tabs 0.4 Mg Tab SUBLINGUAL Q5M PRN Chest Pain Intake and Output 02/03/20 02/04/20 02/04/20 22:59 06:59 14:59 Intake Total 320 160 Balance 320 160 Intake: Oral 320 160 Other: Voiding Method Toilet Toilet Toilet # Voids 1 1 Weight 94.801 kg EKG Interpretations (text) Sinus rhythm with episodes of junctional rhythm and sinus tachycardia Assessment and Plan (1) Allergic drug rash Current Visit: Yes Status: Acute Code(s): L27.0 - GEN SKIN ERUPTION DUE TO DRUGS AND MEDS TAKEN INTERNALLY SNOMED Code(s): 50239785 (2) Bradycardia Current Visit: Yes Status: Acute Code(s): R00.1 - BRADYCARDIA, UNSPECIFIED SNOMED Code(s): 78476862 (3) Syncope Current Visit: Yes Status: Acute Code(s): R55 - SYNCOPE AND COLLAPSE SNOMED Code(s): 822002555 (4) Status post total left knee replacement Current Visit: No Status: Acute Code(s): Z96.652 - PRESENCE OF LEFT ARTIFICIAL KNEE JOINT SNOMED Code(s): 9466238561748 (5) Hypertension Current Visit: Yes Status: Acute Code(s): I10 - ESSENTIAL (PRIMARY) HYPERTENSION SNOMED Code(s): 45257575 Plan: Discontinue Inderal. Continue to monitor her arrhythmias. Treat for drug rash. If patient continues to be bradycardic with evidence of tachybradycardia syndrome, may consider permanent pacemaker implantation
--- NOTE | 2020-02-04 15:23 | P.HPIM ---
History of Present Illness H&P Date: 02/04/20 Chief Complaint: passed out history of presenting complaint This is a pleasant 59-year-old patient of Dr. Ash. Chronic stable medical conditions include diabetes, hypertension, QT heart syndrome, osteo-arthritis. patient on December 11 underwent left total knee arthroplasty by Dr. Rodriguez. Subsequently had infection in one of the stitches. Was put on Keflex. 2 week course. 2 days ago patient started to get a rash in the body. arms and legs with welts.no shortness of breath. Tired. Had an episode of passing out-was going to the bathroom. Became dizzy. Past for about 10 minutes.. Patient went [facility]. Found to have bradycardia.mainly junctional rhythm lasted for about 10 minutes. Inderal was held. This morning patient had swelling of the lips. The hives become more prominent. itching. Patient started on IV Solu-Medrol and Benadryl.no chest pain or palpitation. No seizure activity. Review of systems: GEN.: Tired EYES: None HEENT: None NECK: None RESPIRATORY: None CARDIOVASCULAR: None GASTROINTESTINAL: None GENITOURINARY: Urinary incontinence MUSCULOSKELETAL: Joint pains LYMPHATICS: None HEMATOLOGICAL: None DERMATOLOGICAL: Left knee incision healing well PSYCHIATRY: None NEUROLOGICAL: no focal symptoms Past medical history to include: Diabetes mellitus, hypertension, osteoarthritis, abnormal shaped kidney tubes,QT heart syndrome Social history: Does not smoke. Alcohol occasionally. . Physical examination: VITAL SIGNS: 97.9, 81, 18, 92/61, 96% room air GENERAL: BMI 40.8, sitting up edge of the bed, awake. EYES: Pupils equal. Conjunctiva normal. HEENT: External appearance of nose and ears normal, oral cavity grossly normal. NECK: JVD not raised; masses not palpable. HEART: First and second heart sounds are normal; no edema. LUNGS: Respiratory rate normal; clear to auscultation. ABDOMEN: Soft, nontender, liver spleen not palpable, no masses palpable. PSYCH: Able to answer questions. Mood affect normall. MUSCULAR skeletal: incisional the left knee, healed well DERMATOLOGICAL: scattered hives on the dorsal arms lower extremity. NEUROLOGICAL: Cranial nerves grossly intact; no facial asymmetry, power and sensation grossly intact. LYMPHATICS: No lymph nodes palpable in the axilla and neck INVESTIGATIONS, reviewed in the clinical context: LDL 48 Accu-Cheks 161, 148 labs from outside hospital: White count 16, hemoglobin 14.2, platelets 327, bun 16, creatinine 0.8, potassium 4.7 Assessment: -Acute ALLERGIC reaction likely from Keflex after patient had taken for a few days. Patient had some swelling of the lips today. Hives. No trouble breathing or choking. -Syncope likely from junctional rhythm from patient being on propranolol. Has been discontinued. -acute cellulitis of the left knee arthroplasty incision site has healed well. -Diabetes mellitus type 2 on oral hypoglycemic -QT heart syndrome -Essential hypertension -Primary osteoarthritis -Morbid Obesity BMI 40.8 Plan: patient's propranolol discontinued. Put on IV Solu-Medrol and Benadryl this morning. Currently consulted. Put on telemetry. Home medications to continue.discussed with the patient and . Past Medical History Past Medical History: Diabetes Mellitus, Hyperlipidemia, Hypertension History of Any Multi-Drug Resistant Organisms: None Reported Past Surgical History: Section, Hysterectomy, Orthopedic Surgery Additional Past Surgical History / Comment(s): tubes and stents in kidneys and removed., x3, partial hysterectomy and then ovaries later removed. total left knee 11/2019 Past Psychological History: No Psychological Hx Reported Smoking Status: Never smoker Past Alcohol Use History: None Reported Past Drug Use History: None Reported Medications and Allergies Home Medications Medication Instructions Recorded Confirmed Type Atorvastatin [Lipitor] 20 mg PO HS 11/29/19 02/03/20 History Cinnamon Bark [Cinnamon] 1,000 mg PO DAILY 11/29/19 02/03/20 History Furosemide [Lasix] 20 mg PO DAILY 11/29/19 02/03/20 History Irbesartan [Avapro] 150 mg PO DAILY 11/29/19 02/03/20 History Isosorbide Mononitrate [Isosorbide 30 mg PO DAILY 11/29/19 02/03/20 History Mononitrate ER] Milk Thistle 150 mg PO DAILY 11/29/19 02/03/20 History Propranolol HCl 60 mg PO HS 11/29/19 02/03/20 History metFORMIN HCL [Glucophage] 500 mg PO BID-W/MEALS 11/29/19 02/03/20 History Acetaminophen Tab [Tylenol Tab] 500 mg PO Q6HR PRN 02/03/20 02/03/20 History Cephalexin [Keflex] 500 mg PO QID 02/03/20 02/03/20 History Magnesium Oxide 400 mg PO HS 02/03/20 02/03/20 History Turmeric Root Extract [Turmeric] 500 mg PO DAILY 02/03/20 02/03/20 History Allergies Allergy/AdvReac Type Severity Reaction Status Date / Time azithromycin AdvReac Unknown states Verified 02/03/20 14:47 [From Zithromax Z-Sylvester] geotechnical intern told her not to take. levofloxacin [From Levaquin] AdvReac Unknown states Verified 02/03/20 14:47 geotechnical intern told her not to take. Narcotics AdvReac Unknown Rapid Uncoded 02/03/20 14:47 Heart Rate, Insomnia Physical Exam Vitals: Vital Signs Temp Pulse Pulse Resp BP BP Pulse Ox 02/04/20 09:00 97.9 F 81 18 92/61 96 02/04/20 03:00 99.1 F 71 17 112/67 100 02/03/20 21:00 97.9 F 98 16 126/65 99 02/03/20 17:40 100 18 141/67 98 02/03/20 16:00 89 20 150/72 97 02/03/20 15:30 86 18 137/73 97 02/03/20 15:00 86 15 138/71 99 02/03/20 14:27 98.0 F 81 18 138/72 99 Intake and Output 02/03/20 02/04/20 02/04/20 22:59 06:59 14:59 Intake Total 320 Balance 320 Intake: Oral 320 Other: Voiding Method Toilet Toilet # Voids 1 1 Weight 94.801 kg Results Labs: Abnormal Lab Results - Last 24 Hours (Table) 02/03/20 02/04/20 Range/Units 19:53 06:57 POC Glucose (mg/dL) 131 H 161 H (75-99) mg/dL Thrombosis Risk Factor Assmnt - Choose All That Apply Any of the Below Risk Factors Present?: Yes Each Factor Represents 1 point: Minor surgery planned, Obesity (BMI >25) Other Risk Factors: Yes Each Risk Factor Represents 2 Points: Age 61-74 years Other congenital or acquired thrombophilia - If yes, enter type in comment: No Thrombosis Risk Factor Assessment Total Risk Factor Score: 4 Thrombosis Risk Factor Assessment Level: Moderate Risk
[2020-02-04 17:55] LABS: Glucose,Whole Blood 220 mg/dL (75-99)
[2020-02-04 20:03] LABS: Glucose,Whole Blood 219 mg/dL (75-99)
[2020-02-04] MEDS: ATORVASTATIN 20 MG TAB PO SCH (20:15)
[2020-02-04] MEDS: MAGNESIUM OXIDE 400 MG TAB PO SCH (20:15)
[2020-02-04] MEDS: FAMOTIDINE 20 MG/2 ML VIAL IV SCH (20:15)
[2020-02-04] MEDS: INSULIN ASPART (NovoLOG) 100 UNIT/ML VIAL SQ SCH (20:19)
[2020-02-05 06:48] VITALS: TEMP 98.1
[2020-02-05 07:28] LABS: Glucose,Whole Blood 137 mg/dL (75-99)
[2020-02-05 08:25] VITALS: BP 162/51; PULSE 84; RESP 16
[2020-02-05] MEDS: INSULIN ASPART (NovoLOG) 100 UNIT/ML VIAL SQ SCH ×2 (08:25→12:50)
[2020-02-05] MEDS: LOSARTAN 50 MG TAB PO SCH (08:35)
[2020-02-05] MEDS: FUROSEMIDE 20 MG TAB PO SCH (08:35)
[2020-02-05] MEDS: ASPIRIN 325 MG TAB PO SCH (08:35)
[2020-02-05] MEDS: ISOSORBIDE MONONITRATE ER 30 MG TAB.ER.24H PO SCH (08:35)
[2020-02-05] MEDS: diphenhydrAMINE 25 MG CAP PO SCH ×2 (08:35→12:49)
[2020-02-05] MEDS: metFORMIN 500 MG TAB PO SCH (08:44)
[2020-02-05] MEDS: FAMOTIDINE 20 MG/2 ML VIAL IV SCH (08:44)
[2020-02-05] MEDS ORDERED: predniSONE 20 MG TAB PO SCH (09:00)
--- NOTE | 2020-02-05 09:53 | P.PN ---
<Asia Kelly - Last Filed: 02/05/20 09:47> Subjective Progress Note Date: 02/05/20 HISTORY OF PRESENT ILLNESS: Patient examined this morning at the bedside. Patient denies dizziness or lightheadedness. Her beta mildred has been discontinued. No further episodes of significant bradycardia noted on telemetry. PHYSICAL EXAM: VITAL SIGNS: Reviewed. GENERAL: Well-developed in no acute distress. NECK: Supple. No JVD or thyromegaly LUNGS: Respirations even and unlabored. Lungs essentially clear to auscultation bilaterally. HEART: Regular rate and rhythm. S1 and S2 heard. EXTREMITIES: Normal range of motion. No clubbing or cyanosis. Peripheral pulses intact. 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 Garrido Nurse practitioner note has been reviewed by physician. Signing provider agrees with the documented findings, assessment, and plan of care. Objective - Vital Signs Vital signs: Vital Signs Temp 98.1 F 02/05/20 08:24 Pulse 84 02/05/20 08:24 Resp 16 02/05/20 09:00 BP 162/51 02/05/20 08:24 Pulse Ox 96 02/05/20 08:24 Intake & Output 02/04/20 02/05/20 02/05/20 18:59 06:59 18:59 Intake Total 640 240 Output Total 3 250 Balance 637 -250 240 Intake: Oral 640 240 Output: Urine 3 250 Other: Voiding Method Toilet Toilet Toilet # Voids 2 - Labs Labs: Abnormal Lab Results - Last 24 Hours (Table) 02/04/20 02/04/20 02/04/20 Range/Units 12:48 17:54 20:02 POC Glucose (mg/dL) 148 H 220 H 219 H (75-99) mg/dL 02/05/20 Range/Units 07:27 POC Glucose (mg/dL) 137 H (75-99) mg/dL <Mirza Qureshi - Last Filed: 02/05/20 12:05> Objective - Vital Signs Vital signs: Vital Signs Temp 98.1 F 02/05/20 08:24 Pulse 84 02/05/20 08:24 Resp 16 02/05/20 09:00 BP 162/51 02/05/20 08:24 Pulse Ox 96 02/05/20 08:24 Intake & Output 02/04/20 02/05/20 02/05/20 18:59 06:59 18:59 Intake Total 640 240 Output Total 3 250 Balance 637 -250 240 Intake: Oral 640 240 Output: Urine 3 250 Other: Voiding Method Toilet Toilet Toilet # Voids 2 - Labs Labs: Abnormal Lab Results - Last 24 Hours (Table) 02/04/20 02/04/20 02/04/20 Range/Units 12:48 17:54 20:02 POC Glucose (mg/dL) 148 H 220 H 219 H (75-99) mg/dL 02/05/20 02/05/20 Range/Units 07:27 11:35 POC Glucose (mg/dL) 137 H 177 H (75-99) mg/dL
[2020-02-05 11:40] LABS: Glucose,Whole Blood 177 mg/dL (75-99)
[2020-02-05] MEDS ORDERED: FAMOTIDINE 20 MG TAB PO SCH (21:00)
--- NOTE | 2020-02-05 22:20 | P.DS ---
Providers Date of admission: 02/03/20 15:10 Expected date of discharge: 02/05/20 Attending physician: Jono Soto Consults: 02/03/20 14:56 Consult Physician Urgent Consulting Provider: Marisol Mcclelland Consult Reason/Comments: nasrin Do you want consulting provider notified?: Yes Primary care physician: [facility] Course: Chief Complaint: passed out history of presenting complaint This is a pleasant 59-year-old patient of Dr. Ash. Chronic stable medical conditions include diabetes, hypertension, QT heart syndrome, osteo-arthritis. patient on December 11 underwent left total knee arthroplasty by Dr. Rodriguez. Subsequently had infection in one of the stitches. Was put on Keflex. 2 week course. 2 days ago patient started to get a rash in the body. arms and legs with welts.no shortness of breath. Tired. Had an episode of passing out-was going to the bathroom. Became dizzy. Past for about 10 minutes.. Patient went [facility]. Found to have bradycardia.mainly junctional rhythm lasted for about 10 minutes. Inderal was held. This morning patient had swelling of the lips. The hives become more prominent. itching. Patient started on IV Solu-Medrol and Benadryl.no chest pain or palpitation. No seizure activity. Responded well. Patient felt to have junctional rhythm bradycardia from beta mildred. Propranolol discontinued. This morning doing well. We'll give a short tapering dose of steroids. Knee incision is healed well. We'll follow with Dr. Rodriguez in the office. Patient be getting an event monitor from [facility]. Discussed with the patient. Discussion and discharge planning more than 35 minutes Consultation: Dr. Garrido from cardiology Physical examination: VITAL SIGNS: 98.1, 84, 16, 146/75, 96% room air GENERAL: BMI 40.8, sitting up in a chair, comfortable NECK: JVD not raised; masses not palpable. HEART: First and second heart sounds are normal; no edema. LUNGS: Respiratory rate normal; clear to auscultation. ABDOMEN: Soft, nontender, liver spleen not palpable, no masses palpable. PSYCH: Able to answer questions. Mood affect normall. MUSCULAR skeletal: incisional the left knee, healed well DERMATOLOGICAL: Hives resolved INVESTIGATIONS, reviewed in the clinical context: LDL 48 Accu-Cheks 161, 148 labs from outside hospital: White count 16, hemoglobin 14.2, platelets 327, bun 16, creatinine 0.8, potassium 4.7 Assessment: -Acute ALLERGIC reaction likely from Keflex after patient had taken for a few days. Patient had some swelling of the lips today. Hives. No trouble breathing or choking. -Syncope likely from junctional rhythm from patient being on propranolol. Has been discontinued.-Heart rate has come up to the 70s -acute cellulitis of the left knee arthroplasty incision site has healed well. -Diabetes mellitus type 2 on oral hypoglycemic -QT heart syndrome -Essential hypertension -Primary osteoarthritis -Morbid Obesity BMI 40.8 Disposition: Home Patient Condition at Discharge: Stable Plan - Discharge Summary Discharge Rx Participant: No New Discharge Prescriptions: New diphenhydrAMINE [Benadryl] 25 mg PO QID PRN cap PRN Reason: Itching predniSONE 0 mg PO DIRECTED #10 tab Continue Irbesartan [Avapro] 150 mg PO DAILY Atorvastatin [Lipitor] 20 mg PO HS metFORMIN HCL [Glucophage] 500 mg PO BID-W/MEALS Furosemide [Lasix] 20 mg PO DAILY Isosorbide Mononitrate [Isosorbide Mononitrate ER] 30 mg PO DAILY Acetaminophen Tab [Tylenol] 500 mg PO Q6HR PRN PRN Reason: Pain Magnesium Oxide 400 mg PO HS Discontinued Propranolol HCl 60 mg PO HS Cephalexin [Keflex] 500 mg PO QID No Action Cinnamon Bark [Cinnamon] 1,000 mg PO DAILY Milk Thistle 150 mg PO DAILY Turmeric Root Extract [Turmeric] 500 mg PO DAILY Discharge Medication List Atorvastatin [Lipitor] 20 mg PO HS 11/29/19 [History] Cinnamon Bark [Cinnamon] 1,000 mg PO DAILY 11/29/19 [History] Furosemide [Lasix] 20 mg PO DAILY 11/29/19 [History] Irbesartan [Avapro] 150 mg PO DAILY 11/29/19 [History] Isosorbide Mononitrate [Isosorbide Mononitrate ER] 30 mg PO DAILY 11/29/19 [History] Milk Thistle 150 mg PO DAILY 11/29/19 [History] metFORMIN HCL [Glucophage] 500 mg PO BID-W/MEALS 11/29/19 [History] Acetaminophen Tab [Tylenol] 500 mg PO Q6HR PRN 02/03/20 [History] Magnesium Oxide 400 mg PO HS 02/03/20 [History] Turmeric Root Extract [Turmeric] 500 mg PO DAILY 02/03/20 [History] diphenhydrAMINE [Benadryl] 25 mg PO QID PRN cap 02/05/20 [Rx] predniSONE 0 mg PO DIRECTED #10 tab 02/05/20 [Rx] Follow up Appointment(s)/Referral(s): Steve Ash MD [Primary Care Provider] - 03/05/20 (Keep current appointment on March 05) Rebekah Garrido MD [STAFF PHYSICIAN] - 03/11/20 2:00 pm (30 day Event monitor in Cardiology office after discharge today before noon or after 1 pm Appointment at [facility] by Gil) Wilber Rodriguez DO [Doctor of Osteopathic Medicine] - 02/21/20 1:30 pm Patient Instructions/Handouts: Urticaria (GEN), Syncope (DC), Bradycardia (DC) Activity/Diet/Wound Care/Special Instructions: event monitor from cardiology
== END 2020-02-05 13:00 | disposition home or self-care (01) ==
LOC: EC 14:26 → 3NCARDOBS 15:10
PROVIDERS: ADMIT Hospitalist; ATTEND Hospitalist
DX: R55 Syncope and collapse (principal); R00.1 Bradycardia, unspecified; R42 Dizziness and giddiness; E11.9 Type 2 diabetes mellitus without complications; E66.01 Morbid (severe) obesity due to excess calories; E78.5 Hyperlipidemia, unspecified; I10 Essential (primary) hypertension; L03.116 Cellulitis of left lower limb; L27.0 Generalized skin eruption due to drugs and medicaments taken internally; M19.91 Primary osteoarthritis, unspecified site; Z68.41 Body mass index [BMI] 40.0-44.9, adult; Z79.84 Long term (current) use of oral hypoglycemic drugs; Z79.899 Other long term (current) drug therapy; Z90.711 Acquired absence of uterus with remaining cervical stump; Z96.652 Presence of left artificial knee joint
CPT/HCPCS: 93005; 96375; 96376 ×2; 96374; 99285; 80061; 84484; G0378 ×3; J1200; J2920; J7512

== ENCOUNTER 2020-03-25 10:23 | Day surgery (SDC) | payer OTHER ==
[~2020-03-25 10:23] MED LIST changes: -ACETAMINOPHEN TAB 500 MG TAB PO ONE; +ALPRAZolam 0.25 MG TAB PO PRN; +ALPRAZolam 0.5 MG TAB PO PRN; +ASPIRIN 325 MG TAB PO STA; +ATORVASTATIN 80 MG TAB PO STA; -DEXAMETHASONE SOD PHOSPHATE 10 MG/ML 1 ML VIAL IV ONE; -GABAPENTIN 300 MG CAP PO ONE; -HYDROmorphone 0.5 MG/0.5 ML SYRINGE IVP PRN; -LIDOCAINE 1% (10MG/ML) FOR IV START INTRADERMA PRN; -MELOXICAM 7.5 MG TAB PO ONE; -MIDAZOLAM 2 MG/2 ML VIAL IV PRN; +NITROGLYCERIN SL TABS 0.4 MG TAB SUBLINGUAL PRN; -ONDANSETRON 4 MG/2 ML VIAL IVP ONE; +SODIUM CHLORIDE 0.9% 1,000 ML in EMPTY BAG 1 BAG IV ONE; -TRANEXAMIC ACID 1,000 MG in SODIUM CHLORIDE 0.9% 100 ML IVPB ONE; -fentaNYL (PF) 50 MCG/ML 2 ML AMP IV PRN
[2020-03-25] MEDS ORDERED: SODIUM CHLORIDE 0.9% 1,000 ML IV ONE (10:36)
[2020-03-25 10:59] LABS: Glucose,Whole Blood 111 mg/dL (75-99)
[2020-03-25 11:03] VITALS: RESP 16; TEMP 98.6
[2020-03-25] MEDS ORDERED: MIDAZOLAM 2 MG/2 ML VIAL IVP ONE (11:42)
[2020-03-25] MEDS ORDERED: fentaNYL (PF) 50 MCG/ML 2 ML AMP IVP ONE (11:42)
[2020-03-25] MEDS ORDERED: LIDOCAINE 1% INJ 10MG/ML (20 ML MDV) SQ ONE (11:46)
[2020-03-25] MEDS: VERAPAMIL SYRINGE (5 MG/10 ML) INTRAARTER ONE ×2 (11:48→12:03)
[2020-03-25] MEDS ORDERED: HEPARIN SODIUM 1,000 UN/ML (10ML VL) IV ONE (11:50)
[2020-03-25] MEDS ORDERED: IOPAMIDOL-370 125ML BTL INJ ONE (12:02)
[2020-03-25] MEDS ORDERED: RX INFO: IV CONTRAST WAS GIVEN 1 EACH MISC MISCELLANE PRN (12:13)
[2020-03-25] MEDS ORDERED: SODIUM CHLORIDE 0.9% 1,000 ML IV SCH (12:15)
--- NOTE | 2020-03-25 12:18 | P.CARDCATH ---
Date of Procedure: 03/25/20 Preoperative Diagnosis: Positive stress test, nonsustained V. tach and AV block Postoperative Diagnosis: Normal coronary arteries and normal LV function Procedure(s) Performed: Left heart catheterization with left ventriculography Description of Procedure: HISTORY: This is a 59-year-old female with history of hypertension and diabetes and also obesity who was noted to have episodes of AV block and also nonsustained V. tach. A stress test showed possible ischemia. In view of that patient is advised to have a cardiac catheterization for definitive diagnosis. CONSENT:I have discussed the risks, benefits and alternative therapies for the above-mentioned procedure and for both sedation/analgesia as well as necessary blood product administration, if indicated, as they pertain to this patient. The patient has indicated understanding and acceptance of the risks and procedures discussed. PROCEDURE: Patient was brought to the lab in a fasting state. Patient was given some IV sedation. The right groin is infiltrated with lidocaine and right femoral artery was entered using Seldinger technique. A 6-Cymraes catheter was left in place and selective coronary arteriography and left ventriculography was performed. Patient tolerated the procedure well. Femoral angiogram was performed and Angio-Seal was applied for hemostasis. No immediate complications were noted and patient was transferred to [facility] in a stable condition Conscious Sedation: Versed 1mg Fentanyl 50 g Duration 24minutes HEMODYNAMICS: Aortic pressure is about 160/80. Left ventricular end-diastolic pressure is about 5-8. There was no gradient across the aortic valve SELECTIVE CORONARY ARTERIOGRAPHY: LEFT MAIN: Short and free of any occlusive disease THE LEFT ANTERIOR DESCENDING CORONARY ARTERY: This is a good caliber vessel giving rise to good-sized diagonal branch. The LAD and branches are free of any occlusive disease THE LEFT CIRCUMFLEX AND IS CORONARY ARTERY:. This is a codominant vessel giving rise good-sized OM branch. This is free of any Sigmund occlusive disease THE RIGHT CORONARY ARTERY:. This is also codominant vessel free of occlusive disease LEFT VENTRICULOGRAPHY:. This revealed normal-sized cardiac silhouette with good systolic function FINAL IMPRESSION:, Normal coronary arteries. Normal LV function PLAN: Maximum medical therapy. Rule out any infiltrative disease and sarcoidosis. May consider MRI PROGNOSIS: Fair
[2020-03-25] MEDS ORDERED: ISOSORBIDE MONONITRATE ER 30 MG TAB.ER.24H PO SCH (12:45)
[2020-03-25] MEDS ORDERED: METOPROLOL TARTRATE 12.5 MG TAB PO SCH (12:45)
[2020-03-25 16:09] VITALS: BP 132/61; PULSE 76
== END 2020-03-25 17:03 | disposition home or self-care (01) ==
LOC: CATHCVL 10:23
PROVIDERS: ATTEND Internal Medicine Cardiovascular Disease
DX: R94.39 Abnormal result of other cardiovascular function study (principal); I47.2 Ventricular tachycardia; I44.39 Other atrioventricular block; I20.0 Unstable angina; I10 Essential (primary) hypertension; E11.9 Type 2 diabetes mellitus without complications; R42 Dizziness and giddiness; R55 Syncope and collapse; R00.1 Bradycardia, unspecified; E78.00 Pure hypercholesterolemia, unspecified; E66.9 Obesity, unspecified; Z79.899 Other long term (current) drug therapy; Z79.82 Long term (current) use of aspirin; Z79.84 Long term (current) use of oral hypoglycemic drugs; Z88.1 Allergy status to other antibiotic agents; Z88.8 Allergy status to other drugs, medicaments and biological substances; Z68.41 Body mass index [BMI] 40.0-44.9, adult
CPT/HCPCS: 93458; C1769 ×2; C1894; J2250; J2001; J3010; J1644; Q9967

== ENCOUNTER 2020-06-10 06:33 | Day surgery (SDC) | payer OTHER ==
[2020-05-31 11:10] VITALS: BMI 41.0
[~2020-06-10 06:33] MED LIST changes: -ALPRAZolam 0.25 MG TAB PO PRN; -ALPRAZolam 0.5 MG TAB PO PRN; -ASPIRIN 325 MG TAB PO STA; -ATORVASTATIN 80 MG TAB PO STA; +CLINDAMYCIN 600 MG in SODIUM CHLORIDE 0.9% IRRIGATIO 250 ML IRRIGATION ONE; +CLINDAMYCIN 900 MG in DEXTROSE 5% IN WATER 50 ML IVPB PRN; -NITROGLYCERIN SL TABS 0.4 MG TAB SUBLINGUAL PRN; -SODIUM CHLORIDE 0.9% 1,000 ML in EMPTY BAG 1 BAG IV ONE
[2020-06-10 07:14] LABS: Glucose,Whole Blood 125 mg/dL (75-99)
[2020-06-10] MEDS: SODIUM CHLORIDE 0.9% 1,000 ML IV SCH ×6 (07:16→11:40)
[2020-06-10] MEDS ORDERED: LIDOCAINE 1% INJ 10MG/ML (20 ML MDV) ONE (07:56)
[2020-06-10] MEDS ORDERED: IOPAMIDOL-250 50ML BTL IV ONE (08:06)
[2020-06-10] MEDS ORDERED: fentaNYL (PF) 50 MCG/ML 2 ML AMP ONE (08:09)
[2020-06-10] MEDS: fentaNYL (PF) 50 MCG/ML 2 ML AMP IVP ONE ×2 (08:14→08:31)
[2020-06-10] MEDS: MIDAZOLAM 2 MG/2 ML VIAL IVP ONE ×2 (08:14→08:34)
[2020-06-10] MEDS ORDERED: LIDOCAINE 1% INJ 10MG/ML (20 ML MDV) SQ ONE ×2 (08:25→08:31)
--- NOTE | 2020-06-10 09:41 | P.PCN ---
Date of Procedure: 06/10/20 Preoperative Diagnosis: Intermittent AV block and syncope. Ventricular arrhythmias Postoperative Diagnosis: The same Description of Procedure: HISTORY: [This is a 59-year-old female with history of long QT syndrome on beta mildred, who was admitted to the hospital with high degree AV block and syncope episodes. Patient also has insulin ventricular tachycardia. Patient needs beta mildred therapy. She is advised to have permanent pacemaker implantation . CONSENT:I have discussed the risks, benefits and alternative therapies for the above-mentioned procedure and for both sedation/analgesia as well as necessary blood product administration, if indicated, as they pertain to this patient. The patient has indicated understanding and acceptance of the risks and procedures discussed. PROCEDURE: Patient was brought to the lab in a fasting state. Patient was prepped and draped in the usual fashion. Patient was given IV sedation with fentanyl and Versed. The skin below the left clavicle was infiltrated with lidocaine. An incision was made parallel to deltopectoral groove was deepened until the pectoral fascia was exposed. A pocket was created by blunt dissection and cautery. Axillary venography was performed to delineate the course of the axillary vein. 2 sticks were performed into extrathoracic portion of the axillary vein and 2 sheaths were advanced over the guidewires and left in subclavian vein. Conscious Sedation: Versed 1.5mg Fentanyl 75 g Duration 60minutes LEADS: ATRIAL: This is manufactured by [employer]. Model number is 5076-45 and the serial number is [id number] VENTRICULAR: This is manufactured by [employer] model number is 5076-52. [id number] THE DEVICE: This is manufactured by [employer]. Model number is [id number] And the serial number [id number] The ventricular lead is maneuvered l with help of a straight and curved stylets into the left ventricle apical region. Satisfactory position was obtained and threshold measurements were made. The atrial lead was then maneuvered into the right atrial appendage. And thresholds were obtained. THRESHOLDS: ATRIUM(: The minimum pacing threshold is 1.5 at a pulse width of 0.4 with impedance of 570 P-wave: 1.625 VENTRICLE: The minimal patient threshold is 0.625 V at a pulse width of 0.4. The impedance is 1863 R-wave: 13.125 The leads and pulse generator remained in the pocket after it was washed with antibiotics. Pocket was closed in the usual fashion. The fascia was closed with 2-0 Prolene ,the subcutaneous tissue was closed with 3-0 Prolene and the skin was closed with 4-0 Prolene. PROGRAMMING: MODE: . He AAIR with mode switch to DDDR RATE: 60 to 130 OUTPUT: Atrium : 3.5 Ventricle: 3.5 FINAL IMPRESSION: #1. Axillary venography #2. Successful implantation of dual- chamber pacemaker COMPLICATIONS: None PLAN: Patient will be monitored on the telemetry unit. Prophylactic antibiotics to be continued. Chest x-ray in the morning. If stable will be discharged home tomorrow,.
[2020-06-10 10:36] VITALS: RESP 16
[2020-06-10] MEDS: INSULIN ASPART (NovoLOG) 100 UNIT/ML VIAL SQ SCH ×3 (12:39→20:05)
[2020-06-10 12:40] LABS: Glucose,Whole Blood 137 mg/dL (75-99)
[2020-06-10] MEDS ORDERED: CLINDAMYCIN 900 MG in DEXTROSE 5% IN WATER 50 ML IVPB SCH ×2 (14:00)
[2020-06-10] MEDS: ACETAMINOPHEN TAB 325 MG TAB PO PRN (15:54)
[2020-06-10 17:19] LABS: Glucose,Whole Blood 111 mg/dL (75-99)
[2020-06-10 20:06] LABS: Glucose,Whole Blood 145 mg/dL (75-99)
[2020-06-10] MEDS ORDERED: METOPROLOL TARTRATE 12.5 MG TAB PO SCH (21:00)
[2020-06-10] MEDS ORDERED: ATORVASTATIN 20 MG TAB PO SCH (21:00)
[2020-06-10] MEDS ORDERED: MAGNESIUM OXIDE 400 MG TAB PO SCH (21:00)
[2020-06-11] MEDS: SODIUM CHLORIDE 0.9% 1,000 ML IV SCH ×6 (00:25→01:21)
[2020-06-11 03:51] VITALS: TEMP 98.5
[2020-06-11 06:57] LABS: Glucose,Whole Blood 115 mg/dL (75-99)
[2020-06-11 07:30] VITALS: BP 154/87; PULSE 68
[2020-06-11] MEDS: INSULIN ASPART (NovoLOG) 100 UNIT/ML VIAL SQ SCH (07:38)
--- NOTE | 2020-06-11 08:35 | XR ---
EXAMINATION TYPE: XR chest 2V DATE OF EXAM: 06/11/2020 COMPARISON: NONE HISTORY: Post pacemaker insertion. TECHNIQUE: Frontal and lateral views of the chest are obtained. FINDINGS: There is dual lead pacemaker with leads terminating in right atrium and right ventricle. La teral view is suboptimal due to body habitus. There is no suspicious focal air space opacity, pleural effusion, or pneumothorax seen. The cardiac silhouette size is within normal limits. The osseous structures are intact. IMPRESSION: As above.
[2020-06-11] MEDS ORDERED: METOPROLOL TARTRATE 25 MG TAB PO SCH (09:00)
[2020-06-11] MEDS ORDERED: LOSARTAN 50 MG TAB PO SCH (09:00)
[2020-06-11] MEDS ORDERED: NON FORMULARY DRUG (Milk Thistle [Milk Thistle] 150 MG Capsule) PO SCH (09:00)
[2020-06-11] MEDS ORDERED: FUROSEMIDE 20 MG TAB PO SCH ×2 (09:00)
[2020-06-11] MEDS ORDERED: diphenhydrAMINE 25 MG CAP PO SCH (09:00)
[2020-06-11] MEDS ORDERED: NON FORMULARY DRUG (Cinnamon Bark [Cinnamon] 500 MG Capsule) PO SCH (09:00)
[2020-06-11] MEDS ORDERED: NON FORMULARY DRUG (Ubidecarenone [Co Q-10] 100 MG Capsule) PO SCH (09:00)
[2020-06-11] MEDS ORDERED: ISOSORBIDE MONONITRATE ER 30 MG TAB.ER.24H PO SCH ×2 (09:00)
[2020-06-11] MEDS ORDERED: NON FORMULARY DRUG (Garlic [Garlic] 1 EACH Tablet) PO SCH (09:00)
[2020-06-11] MEDS ORDERED: ASPIRIN 81 MG PO SCH (09:00)
[2020-06-11] MEDS ORDERED: NON FORMULARY DRUG (Turmeric Root Extract [Turmeric] 500 MG Capsule) PO SCH (09:00)
--- NOTE | 2020-06-11 11:35 | P.DS ---
Providers Attending physician: Rebekah Garrido Primary care physician: [facility] Course: 59-year-old female who underwent successful implantation of dual-chamber pacemaker with Dr. Garrido on 06/10/2020. The patient is doing well postoperatively. Pacemaker was interrogated this morning by device rep. Chest x-ray completed without evidence of pneumothorax. The patient's beta mildred was increased at the time of discharge to 50 mrem twice a day. She is stable for discharge home. She is to follow up on an outpatient basis Discharge diagnosis History of long QT syndrome with high degree AV block and syncopal episodes, status post dual-chamber pacemaker implantation Nurse practitioner note has been reviewed by physician. Signing provider agrees with the documented findings, assessment, and plan of care. Plan - Discharge Summary Discharge Rx Participant: No New Discharge Prescriptions: New Metoprolol Tartrate [Lopressor] 50 mg PO BID #60 tab Clindamycin [Cleocin] 300 mg PO TID #18 cap Discontinued Metoprolol Tartrate [Lopressor] 12.5 mg PO BID No Action Cinnamon Bark [Cinnamon] 1,000 mg PO DAILY Irbesartan [Avapro] 150 mg PO QAM Atorvastatin [Lipitor] 20 mg PO HS metFORMIN HCL [Glucophage] 500 mg PO BID-W/MEALS Furosemide [Lasix] 20 mg PO QAM Isosorbide Mononitrate [Isosorbide Mononitrate ER] 30 mg PO QAM Milk Thistle 150 mg PO DAILY Turmeric Root Extract [Turmeric] 500 mg PO DAILY Acetaminophen Tab [Tylenol] 500 mg PO Q6HR PRN PRN Reason: Pain Magnesium Oxide 400 mg PO HS diphenhydrAMINE [Benadryl] 25 mg PO QAM Aspirin [Adult Low Dose Aspirin EC] 81 mg PO DAILY Ubidecarenone [Co Q-10] 1 cap PO DAILY Garlic 1 tab PO DAILY Discharge Medication List Atorvastatin [Lipitor] 20 mg PO HS 11/29/19 [History] Cinnamon Bark [Cinnamon] 1,000 mg PO DAILY 11/29/19 [History] Furosemide [Lasix] 20 mg PO QAM 11/29/19 [History] Irbesartan [Avapro] 150 mg PO QAM 11/29/19 [History] Isosorbide Mononitrate [Isosorbide Mononitrate ER] 30 mg PO QAM 11/29/19 [History] Milk Thistle 150 mg PO DAILY 11/29/19 [History] metFORMIN HCL [Glucophage] 500 mg PO BID-W/MEALS 11/29/19 [History] Acetaminophen Tab [Tylenol] 500 mg PO Q6HR PRN 02/03/20 [History] Magnesium Oxide 400 mg PO HS 02/03/20 [History] Turmeric Root Extract [Turmeric] 500 mg PO DAILY 02/03/20 [History] Aspirin [Adult Low Dose Aspirin EC] 81 mg PO DAILY 03/22/20 [History] Garlic 1 tab PO DAILY 03/22/20 [History] Ubidecarenone [Co Q-10] 1 cap PO DAILY 03/22/20 [History] diphenhydrAMINE [Benadryl] 25 mg PO QAM 03/22/20 [History] Clindamycin [Cleocin] 300 mg PO TID #18 cap 06/11/20 [Rx] Metoprolol Tartrate [Lopressor] 50 mg PO BID #60 tab 06/11/20 [Rx] Follow up Appointment(s)/Referral(s): Rebekah aGrrido MD [STAFF PHYSICIAN] - 1 Week Patient Instructions/Handouts: Pacemaker (DC)
[2020-06-11] MEDS: ACETAMINOPHEN TAB 325 MG TAB PO PRN (11:41)
[2020-06-11 11:59] LABS: Glucose,Whole Blood 97 mg/dL (75-99)
[2020-06-11] MEDS ORDERED: MAGNESIUM OXIDE 400 MG TAB PO SCH (21:00)
[2020-06-11] MEDS ORDERED: ATORVASTATIN 20 MG TAB PO SCH (21:00)
[2020-06-12] MEDS ORDERED: metFORMIN 500 MG TAB PO SCH (17:30)
== END 2020-06-11 12:50 | disposition home or self-care (01) ==
LOC: CATHEP 06:33 → 6NMEDSUR 09:51 → CATHEP 06-11 12:50
PROVIDERS: ATTEND Internal Medicine Cardiovascular Disease
DX: Z79.4 Long term (current) use of insulin (principal); I10 Essential (primary) hypertension; E11.9 Type 2 diabetes mellitus without complications; R55 Syncope and collapse; I47.2 Ventricular tachycardia; E78.00 Pure hypercholesterolemia, unspecified; R94.39 Abnormal result of other cardiovascular function study; Z79.82 Long term (current) use of aspirin; Z79.899 Other long term (current) drug therapy; Z88.1 Allergy status to other antibiotic agents; I44.30 Unspecified atrioventricular block
CPT/HCPCS: 33208; 36410; 71046; 76937

== ENCOUNTER 2022-04-09 17:31 | Inpatient (IN) | payer OTHER ==
[2022-04-09] MEDS ORDERED: HEPARIN SODIUM 1,000 UN/ML (10ML VL) IV ONE (18:23)
[2022-04-09] MEDS ORDERED: HEPARIN SODIUM 1,000 UN/ML (10ML VL) IV PRN (18:23)
[2022-04-09] MEDS ORDERED: NITROGLYCERIN OINT 1 INCH/GM PACKET TOPICAL STA (18:24)
[2022-04-09] MEDS ORDERED: HEPARIN SOD,PORK IN 0.45% NACL 25,000 UNIT in 0.45% NACL 1 250ML.BAG IV SCH (18:30)
--- NOTE | 2022-04-09 18:44 | ED ---
Chest Pain HPI - General Chief Complaint: Chest Pain Stated Complaint: chest pain Time Seen by Provider: 04/09/22 18:00 Source: patient, EMS, RN notes reviewed, old records reviewed Mode of arrival: EMS Limitations: no limitations - History of Present Illness Initial Comments: 61-year-old female history of implantable defibrillator was brought in by EMS earlier due to the onset of midsternal chest pain radiating to the left arm to the jaw. She took a nitroglycerin at home without much relief he states it was achy in nature H/10 severity. It was given nitroglycerin by EMS as well as aspirin 324 milligrams. She states pain did start following getting better after the last nitro and aspirin. He does state however she started [facility] [place] chest discomfort as we speak. No fevers chills nausea vomiting sweats no cough or phlegm production no other current complaints or modifying factors. She states she was on blood thinners but now has a watchman MD Complaint: chest pain - Related Data Home Medications Medication Instructions Recorded Confirmed Atorvastatin [Lipitor] 20 mg PO HS 11/29/19 04/09/22 Cinnamon Bark [Cinnamon] 1,000 mg PO DAILY 11/29/19 04/09/22 Furosemide [Lasix] 20 mg PO DAILY 11/29/19 04/09/22 Irbesartan [Avapro] 150 mg PO DAILY 11/29/19 04/09/22 Isosorbide Mononitrate [Isosorbide 30 mg PO DAILY 11/29/19 04/09/22 Mononitrate ER] Milk Thistle 150 mg PO DAILY 11/29/19 04/09/22 metFORMIN HCL [Glucophage] 500 mg PO BID-W/MEALS 11/29/19 04/09/22 Magnesium Oxide 400 mg PO DAILY 02/03/20 04/09/22 Turmeric Root Extract [Turmeric] 500 mg PO DAILY 02/03/20 04/09/22 Garlic 1 tab PO DAILY 03/22/20 04/09/22 Previous Rx's Medication Instructions Recorded Metoprolol Tartrate [Lopressor] 50 mg PO BID #60 tab 06/11/20 Allergies Allergy/AdvReac Type Severity Reaction Status Date / Time cephalexin [From Keflex] Allergy Rash/Hives Verified 04/09/22 18:57 azithromycin AdvReac Unknown states Verified 04/09/22 18:57 [From Zithromax Z-Sylvester] green building engineer told her not to take. levofloxacin [From Levaquin] AdvReac Unknown states Verified 04/09/22 18:57 green building engineer told her not to take. Narcotics AdvReac Unknown Rapid Uncoded 04/09/22 17:41 Heart Rate, Insomnia Review of Systems ROS Statement: Those systems with pertinent positive or pertinent negative responses have been documented in the HPI. ROS Other: All systems not noted in ROS Statement are negative. EKG Findings - EKG Results: EKG: interpreted by ERMD (EKG interpreted by me sinus rhythm a 66. Interval 150 QRS duration 93 QT since QTC 428/[address]-T wave changes nonspecific T- wave configuration) Past Medical History Past Medical History: Diabetes Mellitus, Hyperlipidemia, Hypertension Additional Past Medical History / Comment(s): SEE H & P BY DR. HUSSEIN History of Any Multi-Drug Resistant Organisms: None Reported Past Surgical History: Section, Heart Catheterization, Hysterectomy, Orthopedic Surgery Additional Past Surgical History / Comment(s): TOTAL LEFT KNEE (12/12/19). Tubes and stents in kidneys. Partial hysterectomy and then ovaries later removed. Past Anesthesia/Blood Transfusion Reactions: Postoperative Nausea & Vomiting (PONV) Past Psychological History: No Psychological Hx Reported Smoking Status: Never smoker Past Alcohol Use History: None Reported Past Drug Use History: None Reported - Past Family History Mother Family Medical History: Cancer Father Family Medical History: Cancer General Exam - General Exam Comments Initial Comments: This is a well-developed well-nourished awake alert oriented 4 female Limitations: no limitations General appearance: alert, in no apparent distress Head exam: Present: atraumatic, normocephalic, normal inspection Eye exam: Present: normal appearance, PERRL, EOMI. Absent: scleral icterus, conjunctival injection, periorbital swelling ENT exam: Present: normal exam, mucous membranes moist Neck exam: Present: normal inspection, full ROM, other (No sign of urinary or bruits). Absent: tenderness, meningismus, lymphadenopathy Respiratory exam: Present: normal lung sounds bilaterally, chest wall tenderness (Tenderness palpation of the costosternal margins bilaterally this does not reproduce the patient's pain she presented with.). Absent: respiratory distress, wheezes, rales, rhonchi, stridor Cardiovascular Exam: Present: regular rate, normal rhythm, normal heart sounds. Absent: systolic murmur, diastolic murmur, rubs, gallop, clicks GI/Abdominal exam: Present: soft, normal bowel sounds. Absent: distended, tenderness, guarding, rebound, rigid Extremities exam: Present: normal inspection, full ROM, normal capillary refill. Absent: tenderness, pedal edema, joint swelling, calf tenderness Back exam: Present: normal inspection Neurological exam: Present: alert, oriented X3, CN II-XII intact Psychiatric exam: Present: normal affect, normal mood Skin exam: Present: warm, dry, intact, normal color. Absent: rash Course Vital Signs 04/09/22 04/09/22 04/09/22 17:38 19:21 21:00 Temperature 98.6 F Pulse Rate 65 67 63 Respiratory 18 18 18 Rate Blood Pressure 194/84 212/86 210/95 O2 Sat by Pulse 96 96 96 Oximetry Chest Pain MDM - MDM I did evaluate the imaging is negative for acute processes. Patient will be admitted for inpatient evaluation and treatment of unstable angina. I did discuss case with Ramya Torres covering for Dr. Nicolas. Medical decision making patient does present with complaints of chest pain with radiation to left arm and jaw consistent with angina. Other considerations neck considered valid at this time. Disposition Clinical Impression: Unstable angina pectoris Disposition: ADMITTED IP TO THIS [facility] Condition: Stable Referrals: Steve Ash MD [Primary Care Provider] - 1-2 days Decision Date: 04/09/22 Decision Time: 21:20
[2022-04-09] MEDS ORDERED: MORPHINE SULFATE 4 MG/ML SYRINGE IVP STA (19:08)
[2022-04-09 19:33] LABS: Basophils % (A) 1 %; Eosinophils # (A) 0.3 k/uL (0-0.7); Eosinophils % (A) 4 %; HCT 37.4 % (34.0-46.0); HGB 12.5 gm/dL (11.4-16.0); Lymphocytes # (A) 1.7 k/uL (1.0-4.8); Lymphocytes % (A) 23 %; MCH 30.9 pg (25.0-35.0); MCHC 33.4 g/dL (31.0-37.0); MCV 92.3 fL (80.0-100.0); Mean Platelet Volume 9.4; Monocytes # (A) 0.4 k/uL (0-1.0); Monocytes % (A) 6 %; Neutrophils # (A) 4.6 k/uL (1.3-7.7); Neutrophils % (A) 63 %; Platelet Count 205 k/uL (150-450); RBC 4.06 m/uL (3.80-5.40); RDW 13.3 % (11.5-15.5); WBC 7.2 k/uL (3.8-10.6)
[2022-04-09] MEDS ORDERED: ACETAMINOPHEN TAB 325 MG TAB PO STA (19:48)
[2022-04-09 20:04] LABS: INR 0.9 (<1.2); Partial Thromboplastin Time 24.6 sec (22.0-30.0); Prothrombin Time 9.7 sec (9.0-12.0)
[2022-04-09] MEDS ORDERED: METOPROLOL TARTRATE 5 MG/5 ML VIAL IVP STA (20:16)
[2022-04-09 21:20] LABS: ALT 21 U/L (4-34); AST 21 U/L (14-36); African American GFR (CKD) >90 (>60 ml/min/1.73 sqM); Albumin 3.8 g/dL (3.5-5.0); Alkaline Phosphatase 136 U/L (38-126); Anion Gap 9 mmol/L; Blood Urea Nitrogen 18 mg/dL (7-17); Calcium 9.1 mg/dL (8.4-10.2); Carbon Dioxide 24 mmol/L (22-30); Chloride 108 mmol/L (98-107); Creatine Kinase 59 U/L (30-135); Glucose 93 mg/dL (74-99); Lipase 79 U/L (23-300); Magnesium 2.3 mg/dL (1.6-2.3); Non-African American GFR(CKD) 87 (>60 ml/min/1.73 sqM); Potassium 3.8 mmol/L (3.5-5.1); Sodium 141 mmol/L (137-145); Total Bilirubin 0.3 mg/dL (0.2-1.3); Total Protein 6.7 g/dL (6.3-8.2)
[2022-04-09] MEDS ORDERED: MORPHINE SULFATE 4 MG/ML SYRINGE IV PRN (21:22)
[2022-04-09] MEDS ORDERED: NITROGLYCERIN SL TABS 0.4 MG TAB SUBLINGUAL PRN (21:22)
--- NOTE | 2022-04-09 21:22 | ED ---
Medical Decision Making - Lab Data Result diagrams: 04/09/22 19:27 04/09/22 20:10 Lab Results 04/09/22 04/09/22 04/09/22 Range/Units 19:27 19: 20:10 WBC 7.2 (3.8-10.6) k/uL RBC 4.06 (3.80-5.40) m/uL Hgb 12.5 (11.4-16.0) gm/dL Hct 37.4 (34.0-46.0) % MCV 92.3 (80.0-100.0) fL MCH 30.9 (25.0-35.0) pg MCHC 33.4 (31.0-37.0) g/dL RDW 13.3 (11.5-15.5) % Plt Count 205 (150-450) k/uL MPV 9.4 Neutrophils % 63 % Lymphocytes % 23 % Monocytes % 6 % Eosinophils % 4 % Basophils % 1 % Neutrophils # 4.6 (1.3-7.7) k/uL Lymphocytes # 1.7 (1.0-4.8) k/uL Monocytes # 0.4 (0-1.0) k/uL Eosinophils # 0.3 (0-0.7) k/uL Basophils # 0.0 (0-0.2) k/uL PT 9.7 (9.0-12.0) sec INR 0.9 (<1.2) APTT 24.6 (22.0-30.0) sec Sodium 141 (137-145) mmol/L Potassium 3.8 (3.5-5.1) mmol/L Chloride 108 H (98-107) mmol/L Carbon Dioxide 24 (22-30) mmol/L Anion Gap 9 mmol/L BUN 18 H (7-17) mg/dL Creatinine 0.74 (0.52-1.04) mg/dL Est GFR (CKD-EPI)AfAm >90 (>60 ml/min/1.73 sqM) Est GFR (CKD-EPI)NonAf 87 (>60 ml/min/1.73 sqM) Glucose 93 (74-99) mg/dL Calcium 9.1 (8.4-10.2) mg/dL Magnesium 2.3 (1.6-2.3) mg/dL Total Bilirubin 0.3 (0.2-1.3) mg/dL AST 21 (14-36) U/L ALT 21 (4-34) U/L Alkaline Phosphatase 136 H (38-126) U/L Creatine Kinase 59 (30-135) U/L Total Protein 6.7 (6.3-8.2) g/dL Albumin 3.8 (3.5-5.0) g/dL Lipase 79 (23-300) U/L Critical Care Time Critical Care Time: Yes Total Critical Care Time: 31 Critical Care Time: Total care time includes initial presentation with history physical labs x-rays reevaluation patient response to therapy discuss with the main physician admission orders documentation the above review of old charting was available. Disposition Clinical Impression: Unstable angina pectoris Disposition: ADMITTED IP TO THIS [facility] Condition: Stable Referrals: Steve Ash MD [Primary Care Provider] - 1-2 days
--- NOTE | 2022-04-09 21:57 | XR ---
EXAMINATION TYPE: XR chest 2V DATE OF EXAM: 04/09/2022 COMPARISON: 06/11/2020 INDICATION: Chest pain TECHNIQUE: Frontal and lateral views of the chest are obtained. FINDINGS: The heart size is prominent. Pacemaker overlies left chest The pulmonary vasculature is normal. The lungs are clear. IMPRESSION: 1. Cardiomegaly
[2022-04-09] MEDS ORDERED: hydrALAZINE HCL 20 MG/ML 1 ML VIAL IVP PRN (23:32)
[2022-04-10] MEDS: NITROGLYCERIN OINT 1 INCH/GM PACKET TOPICAL SCH ×2 (01:02→05:36)
[2022-04-10] MEDS ORDERED: HEPARIN SODIUM 1,000 UN/ML (10ML VL) IV PRN (03:26)
[2022-04-10 04:43] LABS: Basophils % (A) 1 %; Eosinophils # (A) 0.3 k/uL (0-0.7); Eosinophils % (A) 5 %; HCT 36.7 % (34.0-46.0); HGB 12.7 gm/dL (11.4-16.0); Lymphocytes # (A) 1.8 k/uL (1.0-4.8); Lymphocytes % (A) 29 %; MCH 32.1 pg (25.0-35.0); MCHC 34.6 g/dL (31.0-37.0); MCV 92.9 fL (80.0-100.0); Mean Platelet Volume 8.6; Monocytes # (A) 0.4 k/uL (0-1.0); Monocytes % (A) 6 %; Neutrophils # (A) 3.6 k/uL (1.3-7.7); Neutrophils % (A) 57 %; Platelet Count 170 k/uL (150-450); RBC 3.95 m/uL (3.80-5.40); RDW 12.9 % (11.5-15.5); WBC 6.3 k/uL (3.8-10.6)
[2022-04-10 05:33] LABS: Prothrombin Time 10.2 sec (9.0-12.0)
[2022-04-10] MEDS: SODIUM CHLORIDE 0.9% 1,000 ML IV SCH ×2 (05:35→19:56)
[2022-04-10] MEDS: metFORMIN 500 MG TAB PO SCH ×2 (05:36→18:40)
[2022-04-10] MEDS: METOPROLOL TARTRATE 50 MG TAB PO SCH ×2 (08:05→19:56)
[2022-04-10] MEDS: SPIRONOLACTONE 25 MG TAB PO SCH (08:05)
[2022-04-10] MEDS: FUROSEMIDE 20 MG TAB PO SCH (08:05)
[2022-04-10] MEDS: MAGNESIUM OXIDE 400 MG TAB PO SCH (08:05)
[2022-04-10] MEDS: ASPIRIN 325 MG TAB PO SCH (08:05)
[2022-04-10] MEDS ORDERED: LOSARTAN 50 MG TAB PO SCH (09:00)
[2022-04-10] MEDS ORDERED: ISOSORBIDE MONONITRATE ER 30 MG TAB.ER.24H PO SCH (09:00)
--- NOTE | 2022-04-10 09:10 | P.CRDCN ---
History of Present Illness Consult date: 04/10/22 History of present illness: HISTORY OF PRESENT ILLNESS This is a 61 year old female with past medical history of hypertension, hyperlipidemia, diabetes mellitus type 2. She follows with Dr. Cha in the office. Patient gives history of having chest pain for the past couple months which is dull and goes up her arm and across to her jaw. She denies shortness of breath or diaphoresis. She states she has been taking all of her medications as directed and has been compliant with a low-salt diet. She denies any recent weight gain. Patient presented with a blood pressure of 212/86 and currently at 190/75. In the emergency center, patient received 1 dose of IV Lopressor and nitroglycerin ointment. EKG is sinus rhythm, nonspecific changes Chest x-ray reveals cardiomegaly CBC unremarkable. BUN 18 and creatinine 0.74, potassium 3.8, magnesium 2.3. Troponin negative 3 Echocardiogram 02/2020 revealed normal LV size and normal function. Mild concentric left ventricular hypertrophy. Lexiscan stress test 03/2020 revealed Abnormal perfusion study with moderate reversible ischemia involving the inferior apical and also inferior lateral segment involving the moderate to large area. This is also a reversible in the apical area. Cardiac catheterization 03/2020 revealed normal coronary arteries. Normal LV function Cardiac MRI 04/2020 revealed no evidence of myocardial involvement of sarcoidosis, no granulomatosis disease of the myocardium. Mild tricuspid and mitral valve regurgitation. Normal cardiac MRI examination Dual-chamber pacemaker implantation 05/2020 Pacemaker interrogation 04/08/2022 reveals normal device and lead measurements Cardiac medications include atorvastatin 20 mg at bedtime, Lasix 20 mg daily, irbesartan 150 mg daily, Imdur 30 mg daily, Lopressor 50 mg twice daily REVIEW OF SYSTEMS Constitutional: No fever, no chills. No weakness, fatigue or lethargy. EENT: No headache. No dizziness. Lungs: No shortness of breath, cough, no sputum production. No wheezing. Cardiovascular: No chest pain, no lower extremity edema. No palpitations. No paroxysmal nocturnal dyspnea. No orthopnea. No lightheadedness or dizziness. No syncopal episodes. Abdominal: No abdominal pain. No nausea, vomiting. No diarrhea. No consti pation. No bloody or tarry stools. No loss of appetite. Genitourinary: No dysuria.. No urinary retention. Musculoskeletal: No myalgias. No muscle weakness, no gait dysfunction, no frequent falls. No back pain. No neck pain. Integumentary: No wounds, no lesions. No rash or pruritus. No unusual bruising. Neurologic: No aphasia. No facial droop. No change in mentation. No head injury. No headache. No paralysis. No paresthesia. Psychiatric: No depression. No anxiety. Endocrine: No abnormal blood sugars. PHYSICAL EXAMINATION Gen: This is a morbidly obese 61-year-old female. She is resting in a recliner and appears to be comfortable. VS: reviewed HEENT: Head is atraumatic, normocephalic. Pupils equal, round. Sclerae is anicteric. NECK: Supple. No JVD. No lymphadenopathy. No thyromegaly. LUNGS: Clear to auscultation. No wheezes or rhonchi. No intercostal retractions. HEART: Regular rate and rhythm. No murmur. ABDOMEN: Soft. Bowel sounds are present. No masses. No tenderness. EXTREMITIES: No pedal edema. No calf tenderness. NEUROLOGICAL: Patient is awake, alert and oriented x3. Cranial nerves 2 through 12 are grossly intact. ASSESSMENT Hypertensive crisis Chest pain most likely due to hypertension Bradycardia status post dual-chamber pacemaker implantation Hypertension Hyperlipidemia Diabetes mellitus type 2 PLAN Continue patient on current home medications Increase Imdur to 60 mg daily and add Aldactone 25 mg daily Monitor blood pressure overnight Obtain 2-D echocardiogram and Doppler study to assess cardiac structure and function Further recommendations to follow based upon clinical course Thank you kindly for this consultation. Nurse practitioner note has been reviewed, I agree with documented findings and plan of care. Patient was seen and examined. Past Medical History Past Medical History: Diabetes Mellitus, Hyperlipidemia, Hypertension Additional Past Medical History / Comment(s): SEE H & P BY DR. HUSSEIN History of Any Multi-Drug Resistant Organisms: None Reported Past Surgical History: Section, Heart Catheterization, Hysterectomy, Orthopedic Surgery Additional Past Surgical History / Comment(s): TOTAL LEFT KNEE (12/12/19). Tubes and stents in kidneys. Partial hysterectomy and then ovaries later removed. Past Anesthesia/Blood Transfusion Reactions: Postoperative Nausea & Vomiting (PONV) Past Psychological History: No Psychological Hx Reported Smoking Status: Never smoker Past Alcohol Use History: None Reported Past Drug Use History: None Reported - Past Family History Mother Family Medical History: Cancer Father Family Medical History: Cancer Medications and Allergies Home Medications Medication Instructions Recorded Confirmed Type Atorvastatin [Lipitor] 20 mg PO HS 11/29/19 04/09/22 History Cinnamon Bark [Cinnamon] 1,000 mg PO DAILY 11/29/19 04/09/22 History Furosemide [Lasix] 20 mg PO DAILY 11/29/19 04/09/22 History Irbesartan [Avapro] 150 mg PO DAILY 11/29/19 04/09/22 History Isosorbide Mononitrate [Isosorbide 30 mg PO DAILY 11/29/19 04/09/22 History Mononitrate ER] Milk Thistle 150 mg PO DAILY 11/29/19 04/09/22 History metFORMIN HCL [Glucophage] 500 mg PO BID-W/MEALS 11/29/19 04/09/22 History Magnesium Oxide 400 mg PO DAILY 02/03/20 04/09/22 History Turmeric Root Extract [Turmeric] 500 mg PO DAILY 02/03/20 04/09/22 History Garlic 1 tab PO DAILY 03/22/20 04/09/22 History Metoprolol Tartrate [Lopressor] 50 mg PO BID #60 tab 06/11/20 04/09/22 Rx Allergies Allergy/AdvReac Type Severity Reaction Status Date / Time cephalexin [From Keflex] Allergy Rash/Hives Verified 04/09/22 18:57 azithromycin AdvReac Unknown states Verified 04/09/22 18:57 [From Zithromax Z-Sylvester] cork painter and grader told her not to take. levofloxacin [From Levaquin] AdvReac Unknown states Verified 04/09/22 18:57 cork painter and grader told her not to take. Narcotics AdvReac Unknown Rapid Uncoded 04/09/22 17:41 Heart Rate, Insomnia Physical Exam Vitals: Vital Signs Temp Pulse Pulse Resp BP BP Pulse Ox 04/10/22 02:58 97.5 F L 65 18 172/72 98 04/10/22 02:03 60 17 04/09/22 22:23 98.0 F 60 17 204/85 96 04/09/22 21:54 166/90 04/09/22 21:00 63 18 210/95 96 04/09/22 19:21 67 18 212/86 96 04/09/22 17:38 98.6 F 65 18 194/84 96 Intake and Output 04/09/22 04/10/22 04/10/22 22:59 06:59 14:59 Intake Total 81 Output Total 1 Balance 80 Intake: Intake, IV Titration 81 Amount Heparin Sod,Pork in 0.45% 81 NaCl 25,000 unit In 0.45 % NaCl 1 250ml.bag @ 10. 254 UNITS/KG/HR 10 mls/hr IV .Q24H [facility] Rx#: [id number] Output: Urine 1 Other: Voiding Method Toilet Weight 97.522 kg Results 04/10/22 04:29 04/09/22 20:10 Cardiac Enzymes 04/09/22 04/09/22 04/10/22 Range/Units 20:10 20:10 00:13 AST 21 (14-36) U/L Troponin I <0.012 <0.012 (0.000-0.034) ng/mL 04/10/22 Range/Units 04:29 AST (14-36) U/L Troponin I <0.012 (0.000-0.034) ng/mL Coagulation 04/09/22 04/10/22 04/10/22 Range/Units 19:27 00:13 04:29 PT 9.7 10.2 (9.0-12.0) sec APTT 24.6 42.7 H (22.0-30.0) sec CBC 04/09/22 04/10/22 Range/Units 19:27 04:29 WBC 7.2 6.3 (3.8-10.6) k/uL RBC 4.06 3.95 (3.80-5.40) m/uL Hgb 12.5 12.7 (11.4-16.0) gm/dL Hct 37.4 36.7 (34.0-46.0) % Plt Count 205 170 (150-450) k/uL Comprehensive Metabolic Panel 04/09/22 Range/Units 20:10 Sodium 141 (137-145) mmol/L Potassium 3.8 (3.5-5.1) mmol/L Chloride 108 H (98-107) mmol/L Carbon Dioxide 24 (22-30) mmol/L BUN 18 H (7-17) mg/dL Creatinine 0.74 (0.52-1.04) mg/dL Glucose 93 (74-99) mg/dL Calcium 9.1 (8.4-10.2) mg/dL AST 21 (14-36) U/L ALT 21 (4-34) U/L Alkaline Phosphatase 136 H (38-126) U/L Total Protein 6.7 (6.3-8.2) g/dL Albumin 3.8 (3.5-5.0) g/dL Current Medications Generic Name Dose Route Start Last Admin Trade Name Freq PRN Reason Stop Dose Admin Aspirin 325 mg 04/10/22 09:00 Aspirin 325 Mg Tab PO DAILY [facility] Atorvastatin Calcium 20 mg 04/10/22 21:00 Atorvastatin 20 Mg Tab PO HS KIM Furosemide 20 mg 04/10/22 09:00 Furosemide 20 Mg Tab PO DAILY [facility] Heparin Sodium (Porcine) 0 unit 04/09/22 18:23 04/10/22 03:41 Heparin Sodium 1,000 Un/Ml (10ml Vl) IV 2,438 unit PER PROTOCOL PRN Administration Low PTT Protocol Hydralazine HCl 10 mg 04/09/22 23:32 Hydralazine Hcl 20 Mg/Ml 1 Ml Vial IVP Q4HR PRN Blood Pressure - High Heparin Sodium/Sodium Chloride 250 mls @ 10 mls/hr 04/09/22 18:30 04/10/22 03:24 25,000 unit/ Sodium Chloride IV 12.254 units/kg/hr .Q24H KIM 11.95 mls/hr Titration Protocol 10.254 UNITS/KG/HR Sodium Chloride 1,000 mls @ 20 mls/hr 04/09/22 21:30 04/10/22 05:35 Saline 0.9% IV 20 mls/hr .Q24H KIM Administration Isosorbide Mononitrate 30 mg 04/10/22 09:00 Isosorbide Mononitrate Er 30 Mg Tab.Er.24h PO DAILY [facility] Losartan Potassium 50 mg 04/10/22 09:00 Losartan 50 Mg Tab PO DAILY [facility] Magnesium Oxide 400 mg 04/10/22 09:00 Magnesium Oxide 400 Mg Tab PO DAILY [facility] Metformin HCl 500 mg 04/10/22 07:30 04/10/22 05:36 Metformin 500 Mg Tab PO 500 mg BID-W/MEALS KIM Administration Metoprolol Tartrate 50 mg 04/10/22 09:00 Metoprolol Tartrate 50 Mg Tab PO BID [facility] Morphine Sulfate 4 mg 04/09/22 21:22 Morphine Sulfate 4 Mg/Ml Syringe IV Q5M PRN Chest Pain Nitroglycerin 0.4 mg 04/09/22 21:22 Nitroglycerin Sl Tabs 0.4 Mg Tab SUBLINGUAL Q5M PRN Chest Pain Nitroglycerin 1 inch 04/10/22 00:00 04/10/22 05:36 Nitroglycerin Oint 1 Inch/Gm Packet TOPICAL 1 inch Q6HR [facility] Administration Intake and Output 04/09/22 04/10/22 04/10/22 22:59 06:59 14:59 Intake Total 81 Output Total 1 Balance 80 Intake: Intake, IV Titration 81 Amount Heparin Sod,Pork in 0.45% 81 NaCl 25,000 unit In 0.45 % NaCl 1 250ml.bag @ 10. 254 UNITS/KG/HR 10 mls/hr IV .Q24H [facility] Rx#: [id number] Output: Urine 1 Other: Voiding Method Toilet Weight 97.522 kg 04/10/22 04:29 04/09/22 20:10
[2022-04-10] MEDS: ISOSORBIDE MONONITRATE ER 60 MG TAB.ER.24H PO SCH (10:17)
[2022-04-10] MEDS ORDERED: HYDROcodone/APAP 5-325MG 1 EACH TAB PO PRN (11:46)
[2022-04-10] MEDS ORDERED: HYDROmorphone 0.5 MG/0.5 ML SYRINGE IVP PRN (11:46)
--- NOTE | 2022-04-10 12:15 | CA ---
Transthoracic Echo Report Name: Yeny Carlisle Age: 61 Gender: F : 1960 Exam Date: 04/10/2022 09:39 Exam Location: [place] [facility] Ht (in): 60 Wt (lb): 215 Ordering Physician: Shayy Heart Attending/Referring Phys: [id number], Sly Geophysical Manager Judit Shanks RDCS Procedure CPT: Indications: LVF Cardiac Hx: Technical Quality: Technically difficult study Contrast 1: Lumason Total Dose (mL): 4 Contrast 2: Total Dose (mL): MEASUREMENTS (Male / Female) Normal Values 2D ECHO LV Diastolic Diameter PLAX 3.1 cm 4.2 - 5.9 / 3.9 - 5.3 cm LV Systolic Diameter PLAX 1.8 cm IVS Diastolic Thickness 1.3 cm 0.6 - 1.0 / 0.6 - 0.9 cm LVPW Diastolic Thickness 1.4 cm 0.6 - 1.0 / 0.6 - 0.9 cm LV Relative Wall Thickness 0.9 RV Internal Dim ED PLAX 3.0 cm M-MODE Aortic Root Diameter MM 2.5 cm LA Systolic Diameter MM 4.0 cm LA Ao Ratio MM 1.6 AV Cusp Separation MM 1.6 cm DOPPLER AV Peak Velocity 128.2 cm/s AV Peak Gradient 6.6 mmHg AV Mean Velocity 93.2 cm/s AV Mean Gradient 3.7 mmHg AV Velocity Time Integral 27.0 cm LVOT Peak Velocity 118.6 cm/s LVOT Peak Gradient 5.6 mmHg LVOT Velocity Time Integral 25.9 cm MV Area PHT 3.0 cm??? Mitral E Point Velocity 83.8 cm/s Mitral A Point Velocity 75.5 cm/s Mitral E to A Ratio 1.1 MV Deceleration Time 256.3 ms TR Peak Velocity 145.7 cm/s TR Peak Gradient 8.5 mmHg Right Ventricular Systolic Press 13.5 mmHg FINDINGS Left Ventricle Moderately increased septal wall thickness. Moderately increased posterior wall thickness. Normal left ventricular systolic function with no obvious regional wall motion abnormalities. Left ventricular ejection fraction is estimated at 55 %. Right Ventricle Normal right ventricular size and function. Right ventricular systolic pressure within normal limits. Right Atrium Normal right atrial size. Left Atrium Normal left atrial size. Mitral Valve Structurally normal mitral valve. Mild mitral regurgitation. Aortic Valve No aortic valve stenosis or regurgitation. Tricuspid Valve Mild tricuspid regurgitation. Pulmonic Valve Trace pulmonic regurgitation. Pericardium No pericardial effusion. Aorta Normal size aortic root and proximal ascending aorta. CONCLUSIONS Technically difficult study for interpretation Normal left ventricular dimension and systolic function Previewed by: Dr. Michael Nelson MD (Electronically Signed) Final Date: 10 April 2022 12:14
--- NOTE | 2022-04-10 12:36 | HP ---
HISTORY AND PHYSICAL CHIEF COMPLAINT: Chest pain. HISTORY OF PRESENT ILLNESS: This is a 61-year-old woman with a past medical history of multiple medical problems, diabetes mellitus, hypertension, hyperlipidemia, being followed by Dr. Ash in the office complaining of chest pain. The pain mostly felt in the anterior part and dull which was going around the left arm and left jaw. Her blood pressure was also elevated. Cardiology is following the patient. Medications were adjusted. There is no history of any fever, rigors, or chills at this time. Troponins are negative. PAST MEDICAL HISTORY: Diabetes mellitus, hypertension, hyperlipidemia, rest of the history and rest of the chart is also reviewed. HOME MEDICATIONS: Reviewed include Glucophage, rest of medications and doses are reviewed. ALLERGIES: Reviewed include Keflex, rest of the allergies reviewed. FAMILY HISTORY: History of cancer in the family. SOCIAL HISTORY: No smoke, alcohol. REVIEW OF SYSTEMS: A 14-point review is negative except as mentioned earlier. PHYSICAL EXAMINATION: VITAL SIGNS: Pulse is 64, blood pressure 172/72, and respirations 18. HEENT: Conjunctivae normal. NECK: No jugular venous distention. CARDIOVASCULAR: S1, S2 muffled. RESPIRATIONS: Diminished at the bases. ABDOMEN: Soft, nontender. LEGS: No edema. NERVOUS SYSTEM: No focal deficit. SKIN: No ulcer, rash, bleeding. JOINTS: No active deforming arthropathy. LABS: Reviewed. ASSESSMENT: 1. Chest pain, possible unstable angina. 2. Hypertension and hypertensive urgency. 3. Diabetes mellitus, type 2. 4. Hyperlipidemia. 5. Multiple medical issues. RECOMMENDATIONS: This is a 61-year-old woman who presented with multiple complex medical issues. Recommended to continue current medications, symptomatic treatment. Closely follow with Cardiology and adjust medications. Patient will require a stress test and further evaluation at some point to delineate the exact cause of chest pain, however, currently the troponins are negative and EKG shows some nonspecific ST changes and further recommendations. I will also order a D-dimer for sake of completion of the workup. MMODL / IJN: [id number] /
[2022-04-10] MEDS: lisinopriL 10 MG TAB PO SCH ×2 (12:45→19:56)
[2022-04-10] MEDS: PANTOPRAZOLE 40 MG/10 ML VIAL IVP SCH (12:45)
[2022-04-10 14:01] LABS: Chol/HDL Ratio 2.88 Ratio; LDL Cholesterol,Calculated 65.7 mg/dL (0.0-131.0)
[2022-04-10] MEDS ORDERED: ATORVASTATIN 20 MG TAB PO SCH (21:00)
[2022-04-11] MEDS: metFORMIN 500 MG TAB PO SCH (05:20)
[2022-04-11 07:41] LABS: Glucose,Whole Blood 113 mg/dL (70-110)
[2022-04-11 08:25] VITALS: PULSE 67; RESP 16; TEMP 98.2
[2022-04-11] MEDS: PANTOPRAZOLE 40 MG/10 ML VIAL IVP SCH (08:36)
[2022-04-11] MEDS: SPIRONOLACTONE 25 MG TAB PO SCH (08:37)
[2022-04-11] MEDS: ASPIRIN 325 MG TAB PO SCH (08:38)
[2022-04-11] MEDS: METOPROLOL TARTRATE 50 MG TAB PO SCH (08:38)
[2022-04-11] MEDS: FUROSEMIDE 20 MG TAB PO SCH (08:38)
[2022-04-11] MEDS: ISOSORBIDE MONONITRATE ER 60 MG TAB.ER.24H PO SCH (08:38)
[2022-04-11] MEDS: MAGNESIUM OXIDE 400 MG TAB PO SCH (08:38)
[2022-04-11] MEDS ORDERED: LOSARTAN 50 MG TAB PO SCH (09:00)
[2022-04-11] MEDS ORDERED: amLODIPine 10 MG TAB PO SCH (09:00)
[2022-04-11 10:52] LABS: Basophils # (A) 0.05 X 10*3/uL (0.00-0.10); Basophils % (A) 0.7 %; Eosinophils # (A) 0.34 X 10*3/uL (0.04-0.35); Eosinophils % (A) 4.6 %; HCT 34.9 % (37.2-46.3); HGB 11.7 g/dL (12.0-15.0); Immature Grans, Automated 0.3 %; Lymphocytes # (A) 1.57 X 10*3/uL (0.90-5.00); Lymphocytes % (A) 21.3 %; MCHC 33.5 g/dL (32.0-37.0); MCV 92.3 fL (80.0-97.0); Mean Platelet Volume 10.8 fL (9.5-12.2); Monocytes % (A) 9.5 %; NRBC Per 100 WBC 0 /100 WBCS (0.0-0.0); Neutrophils # (A) 4.68 X 10*3/uL (1.80-7.70); Neutrophils % (A) 63.6 %; Platelet Count 202 X 10*3/uL (140-440); RBC 3.78 X 10*6/uL (4.10-5.20); RDW 13.6 % (11.5-14.5); WBC 7.36 X 10*3/uL (4.50-10.00)
[2022-04-11 11:36] LABS: African American GFR (CKD) 96.5 (60.0-200.0); Albumin 3.8 g/dL (3.8-4.9); Albumin/Globulin Ratio 1.69 (1.60-3.17); Anion Gap 13.5 mmol/L (10.00-18.00); BUN/Creat Ratio 22.44 Ratio (12.00-20.00); Blood Urea Nitrogen 17.1 mg/dL (9.0-27.0); Calcium 9.4 mg/dL (8.7-10.3); Carbon Dioxide 22.4 mmol/L (20.0-27.5); Globulin 2.3 g/dL (1.6-3.3); Non-African American GFR(CKD) 83.2 (60.0-200.0); Total Bilirubin 0.2 mg/dL (0.30-1.20); Total Protein 6.1 g/dL (6.2-8.2)
[2022-04-11 12:02] LABS: Glucose,Whole Blood 97 mg/dL (70-110)
[2022-04-11 12:23] VITALS: BP 111/71
--- NOTE | 2022-04-12 14:13 | DS ---
DISCHARGE SUMMARY FINAL DIAGNOSES: 1. Chest pain, myocardial infarction ruled out. 2. Hypertension, hypertensive urgency. 3. Diabetes mellitus, type 2. 4. Hyperlipidemia. 5. Multiple medical issues. DISCHARGE DISPOSITION: The patient will be discharged in stable condition with guarded prognosis. Cardiology cleared the patient for discharge. HISTORY OF PRESENT ILLNESS: This 61-year-old woman was admitted with chest pain. Blood pressure also elevated. Cardiology saw the patient. Troponins are negative and Cardiology recommended outpatient followup. The patient will be discharged in stable condition with guarded prognosis. Blood pressure also improved with changing medications. PHYSICAL EXAMINATION: VITAL SIGNS: Stable. CARDIOVASCULAR: S1, S2. ABDOMEN: Soft. NERVOUS SYSTEM: No focal deficits. DISCHARGE MEDICATIONS: 1. Stop the Avapro and start Cozaar 100 mg daily. 2. Imdur 60 mg daily. 3. Nitroglycerin p.r.n. 4. Norvasc 10 mg daily. 5. Aldactone 25 mg p.o. daily. FOLLOWUP: Close followup with Dr. Ash. Follow with Cardiology as recommended. MMODL / IJN: [id number] /
--- NOTE | 2022-04-13 11:10 | PN ---
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 Cardiology is following the patient because of uncontrolled hypertension. She had an echocardiogram on this admission that revealed normal LV systolic function. She is free of symptoms this morning. PHYSICAL EXAMINATION: VITAL SIGNS: Afebrile, heart rate 67 beats per minute, blood pressure 168/79, respiratory rate 18. CHEST: Reveals good air entry bilaterally. HEART: Reveals first and second heart sounds. No gallop. No murmur. ABDOMEN: Soft. EXTREMITIES: Did not reveal any edema. Peripheral pulses are felt. ASSESSMENT AND PLAN: 1. Uncontrolled hypertension. 2. Status post permanent pacemaker. PLAN: I am going to increase the losartan to 100 mg daily, add amlodipine 10 mg daily. If this does not control her blood pressure better, we can go up on the Lopressor to 100 b.i.d. MMODL / AYSEN: [id number] /
== END 2022-04-11 13:06 | disposition home or self-care (01) | DRG 305 ==
LOC: EC 17:31 → 6NMEDSUR 21:27 → OBSVTOIN 21:27 → 6NMEDSUR 21:40 → UNDODISOB 04-11 13:06
PROVIDERS: ADMIT Hospitalist; ATTEND Hospitalist
DX: I16.0 Hypertensive urgency (principal); I20.0 Unstable angina; Z68.41 Body mass index [BMI] 40.0-44.9, adult; I11.9 Hypertensive heart disease without heart failure; E11.9 Type 2 diabetes mellitus without complications; I08.1 Rheumatic disorders of both mitral and tricuspid valves; E66.01 Morbid (severe) obesity due to excess calories; R00.1 Bradycardia, unspecified; E78.5 Hyperlipidemia, unspecified; Z95.810 Presence of automatic (implantable) cardiac defibrillator; Z79.899 Other long term (current) drug therapy; Z79.84 Long term (current) use of oral hypoglycemic drugs; Z88.1 Allergy status to other antibiotic agents; Z88.8 Allergy status to other drugs, medicaments and biological substances; Z88.5 Allergy status to narcotic agent
CPT/HCPCS: 36415; 71046; 80053; 80061; 82550; 83690; 83735; 84484; 85025; 85379; 85610; 85730; 93005; 93306; 94760; 96365; 96366; 96375; 96376; 99285

== ENCOUNTER → 2022-07-20 | Outpatient (CLI) | payer OTHER ==
--- NOTE | 2022-07-20 09:47 | CT ---
EXAMINATION TYPE: CT lower leg RT wo con DATE OF EXAM: 07/20/2022 COMPARISON: None HISTORY: Right upper calf (lateral aspect) pain CT DLP: 668.1 mGycm Automated exposure control for dose reduction was used. FINDINGS: There is severe osteoarthritis of the medial and patellofemoral compartments of the knee joint. Hyper trophic spurring is seen. Tiny ossified density is seen within the joint space which could represent a small loose body. No acute fracture. No dislocation. Soft tissue varicosities incidentally noted. There is a soft tissue 5 mm calcification or ossificatio n anterior to the mid to distal diaphysis of the tibia on the sagittal image which appears chronic. G rossly the musculature appears intact. IMPRESSION: 1. SEVERE OSTEOARTHRITIS OF THE KNEE WHICH ARE NONSPECIFIC MILD SOFT TISSUE EDEMA.
== END | disposition home or self-care (01) ==
LOC: RADCTMAIN 08:02
PROVIDERS: ATTEND Orthopaedic Surgery
DX: M17.11 Unilateral primary osteoarthritis, right knee (principal); R59.0 Localized enlarged lymph nodes

== ENCOUNTER → 2023-01-07 | Outpatient (CLI) | payer OTHER ==
[2023-01-07 12:47] LABS: African American GFR (CKD) >90 (>60 ml/min/1.73 sqM); Blood Urea Nitrogen 16 mg/dL (7-17); Non-African American GFR(CKD) 84 (>60 ml/min/1.73 sqM)
--- NOTE | 2023-01-07 15:15 | CT ---
EXAMINATION TYPE: CT urogram wo/w con DATE OF EXAM: 01/07/2023 COMPARISON: None HISTORY: hydronephrosis CT DLP: 4445.3 mGycm CONTRAST: Performed and without and with IV Contrast, patient injected with 100ml mL of Isovue 370. CT Urography was performed with unenhanced followed by enhanced images of the kidneys, ureters and ur inary bladder. Delayed images were obtained. 3d reconstruction was performed at a separate work sta tion. FINDINGS: KIDNEYS/BLADDER: Bilateral extrarenal pelves are noted. There is fullness of the right ureter without filling defects seen. The proximal right ureter partially loops around the right gonadal vein. No in traluminal filling defects are seen. No nephrolithiasis. No distinct renal mass. Urinary bladder radha ssly unremarkable. LUNG BASES-: No visible nodule. No infiltrate. LIVER/GB: No calcified gallstones. No space occupying hepatic lesion. Biliary tree is of normal ca liber. PANCREAS: No inflammation. No distinct mass. SPLEEN: No splenic enlargement. No lesion seen. ADRENALS: No nodule. No thickening. BOWEL: Normal appendix. Normal bowel caliber. No inflammation. GENITAL ORGANS: No gross abnormality. LYMPH NODES: No greater than 1cm abdominal or pelvic lymph nodes are appreciated. AORTA: No significant abnormality. OSSEOUS STRUCTURES: Severe degenerative change lumbar spine. OTHER: No significant additional abnormality is seen. IMPRESSION: 1. Mild fullness of the right ureter however there is no evidence for definite stricture or filling d efect. No obstructing calculus. Bilateral extrarenal pelves.
== END | disposition home or self-care (01) ==
LOC: RADCTMAIN 12:08
PROVIDERS: ATTEND Urology
DX: N13.30 Unspecified hydronephrosis (principal)
CPT/HCPCS: 82565; 84520; 74178; 36415; 74400; Q9967

== ENCOUNTER → 2024-10-02 | Outpatient (CLI) | payer MEDICARE ==
[2024-10-02 17:06] LABS: INR 0.9 (<1.2); Partial Thromboplastin Time 23.1 sec (22.0-30.0); Prothrombin Time 10.1 sec (10.0-12.5)
[2024-10-03 02:08] LABS: HCT 38.2 % (37.2-46.3); HGB 12.4 g/dL (12.0-15.0); MCH 30.8 pg (27.0-32.0); MCHC 32.5 g/dL (32.0-37.0); Mean Platelet Volume 11.6 FL (9.5-12.2); NRBC Per 100 WBC 0 X 10*3/uL (0.00-0.01); Platelet Count 207 X 10*3/uL (140-440); RBC 4.02 X 10*6/uL (4.10-5.20); RDW 12.6 % (11.5-14.5); WBC 6.92 X 10*3/uL (4.50-10.00)
[2024-10-03 02:37] LABS: BUN/Creat Ratio 20.75 Ratio (12.00-20.00); Blood Urea Nitrogen 16.6 mg/dL (9.0-27.0); Chloride 104 mmol/L (96-109); Glucose 128 mg/dL (70-110); Potassium 4.2 mmol/L (3.5-5.5); Sodium 139 mmol/L (135-145)
[2024-10-03 02:38] LABS: ALT 24 U/L (8-44); AST 19 U/L (13-35); Albumin/Globulin Ratio 1.48 Ratio (1.60-3.17); Alkaline Phosphatase 114 U/L (41-126); Calcium 9.4 mg/dL (8.7-10.3); Globulin 2.7 g/dL (1.6-3.3); Total Bilirubin 0.2 mg/dL (0.3-1.2); Total Protein 6.7 g/dL (6.2-8.2)
== END | disposition home or self-care (01) ==
LOC: LABPAT 16:04
PROVIDERS: ATTEND Orthopaedic Surgery
DX: Z01.812 Encounter for preprocedural laboratory examination (principal); Z22.322 Carrier or suspected carrier of Methicillin resistant Staphylococcus aureus; M17.11 Unilateral primary osteoarthritis, right knee
CPT/HCPCS: 80053; 85027; 85610; 85730; 87070; 93005

== ENCOUNTER 2024-10-24 05:36 | Day surgery (SDC) | payer MEDICARE, BC ==
[2024-10-19 12:10] VITALS: BMI 42.8
[~2024-10-24 05:36] MED LIST changes: -CLINDAMYCIN 600 MG in SODIUM CHLORIDE 0.9% IRRIGATIO 250 ML IRRIGATION ONE; -CLINDAMYCIN 900 MG in DEXTROSE 5% IN WATER 50 ML IVPB PRN; +TRANEXAMIC 1,000 MG/100ML-NACL 1,000 MG in SALINE 1 100ML.BAG IVPB PRN
[2024-10-24] MEDS: IV FLUID CONTINUATION 1,000 ML IV ONE (05:57)
[2024-10-24] MEDS: GABAPENTIN 300 MG CAP PO PRN (05:58)
[2024-10-24] MEDS: ACETAMINOPHEN TAB 500 MG TAB PO PRN (05:59)
[2024-10-24] MEDS: MELOXICAM 7.5 MG TAB PO PRN (05:59)
[2024-10-24 06:15] LABS: Glucose,Whole Blood 156 mg/dL (70-110)
[2024-10-24] MEDS: ONDANSETRON 4 MG/2 ML VIAL IVP ONE (06:21)
[2024-10-24] MEDS: DEXAMETHASONE SOD PHOSPHATE 4 MG/ML 1 ML VIAL IV ONE (06:21)
[2024-10-24] MEDS: MIDAZOLAM 2 MG/2 ML VIAL IV PRN (06:33)
[2024-10-24 06:39] LABS: African American GFR (CKD) >90 (>60 ml/min/1.73 sqM); Anion Gap 10 mmol/L; Blood Urea Nitrogen 20 mg/dL (7-17); Calcium 10.0 mg/dL (8.4-10.2); Carbon Dioxide 22 mmol/L (22-30); Chloride 107 mmol/L (98-107); Glucose 159 mg/dL (74-99); Non-African American GFR(CKD) 83 (>60 ml/min/1.73 sqM); Potassium 4.5 mmol/L (3.5-5.1); Sodium 139 mmol/L (137-145)
[2024-10-24] MEDS ORDERED: KETAMINE HCL IN 0.9 % NACL 50 MG/5 ML SYRINGE ONE (06:59)
[2024-10-24] MEDS ORDERED: MIDAZOLAM 2 MG/2 ML VIAL ONE (06:59)
[2024-10-24] MEDS ORDERED: DEXAMETHASONE SOD PHOSPHATE 4 MG/ML 1 ML VIAL ONE (06:59)
[2024-10-24] MEDS ORDERED: ROPIVACAINE 5 MG/ML 30 ML VIAL ONE (06:59)
[2024-10-24] MEDS ORDERED: TRANEXAMIC 1,000 MG/100ML-NACL PREMIX BAG ONE (06:59)
[2024-10-24] MEDS ORDERED: HYDROmorphone 0.5 MG/0.5 ML SYRINGE IVP PRN ×4 (07:00→08:53)
[2024-10-24] MEDS: ceFAZolin 1,000 MG in SODIUM CHLORIDE 0.9% 1,000 ML IRRIGATION ONE (07:27)
--- NOTE | 2024-10-24 07:29 | P.ANPRN ---
Procedure Note - Anesthesia - Epidural/Spinal Spinal Time Out Performed: Yes Date of Procedure: 10/24/24 Procedure Start Time: 07:04 Procedure Stop Time: 07:09 Location of Patient: OR Indication: Analgesia Sedation Type: Sedate with meaningful contact maintained Preparation: Sterile Prep Position: Sitting Catheter: None Needle Guage: 22 Narrative: L4-5 space. AttemptX1. Bupivacaine 10.5 mg intrathecally. Blood Aspirated: No Pain Paresthesia on Injection Noted: No Events: Uneventful and Well Tolerated
--- NOTE | 2024-10-24 07:31 | P.ANPRN ---
Procedure Note - Anesthesia - Nerve Block Performed Right iPack Single Time Out Performed: Yes Date of Procedure: 10/24/24 Procedure Start Time: 06:33 Procedure Stop Time: 06:38 Location of Patient: PreOp Indication: Acute Post-Operative Pain, Analgesia, Requested by Surgeon Sedation Type: Sedate with meaningful contact maintained Preparation: Sterile Prep Position: Left Lateral Catheter: None Needle Types: Pajunk Needle Gauge: 21 Ultrasound used to visualize needle placement: Yes Ultrasound used to observe medication spread: Yes Injectate: 0.5% Ropivacaine (see comment for volume) (Ropiv 20ml+Decadron 4mg) Blood Aspirated: No Pain Paresthesia on Injection Noted: No Resistance on Injection: Normal Image Stored and Saved: Yes Events: Uneventful and Well Tolerated
--- NOTE | 2024-10-24 07:32 | P.ANPRN ---
Procedure Note - Anesthesia - Nerve Block Performed Right Adductor Canal Infusion Time Out Performed: Yes Date of Procedure: 10/24/24 Procedure Start Time: 06:38 Procedure Stop Time: 06:43 Location of Patient: PreOp Indication: Acute Post-Operative Pain, Analgesia, Requested by Surgeon Sedation Type: Sedate with meaningful contact maintained Preparation: Sterile Prep Position: Supine Catheter: Indwelling Needle Types: On-Q Ultrasound used to visualize needle placement: Yes Ultrasound used to observe medication spread: Yes Injectate: 0.5% Ropivacaine (see comment for volume) (Ropiv 20ml+Decadron 4mg) Blood Aspirated: No Pain Paresthesia on Injection Noted: No Resistance on Injection: Normal Image Stored and Saved: Yes Events: Uneventful and Well Tolerated
--- NOTE | 2024-10-24 08:17 | P.OP ---
Date of Procedure: 10/24/24 Preoperative Diagnosis: Severe osteoarthritis right knee Postoperative Diagnosis: Severe osteoarthritis right knee Procedure(s) Performed: Right total knee arthroplasty Implants: [employer] Journey II CR Oxinium cruciate retaining femoral component size 4, right [employer] Journey nonporous tibial baseplate size 3, right [employer] Journey II, XLPE Deep Dished articular insert, size 12 mm, Size 3-4, right [employer] Journey Taryn II resurfacing patellar component, oval, 29 mm All components were cemented using Palacos R bone cement The articulation is Oxinium on polyethylene Anesthesia: spinal Surgeon: Wilber Rodriguez Senior Electrical Estimator #1: Gabby Yap Estimated Blood Loss (ml): 30 Pathology: none sent Condition: stable Disposition: PACU Indications for Procedure: The patient's knee is end-stage, and conservative management has failed. The operation of knee replacement has been discussed at length in the office, as well as potential risks and complications. These are inclusive of, but not limited to: Infection, bleeding, scarring, discomfort, stiffness, blood vessel and nerve damage, need for further surgery, failure to relieve symptoms, persistence, recurrence, or worsening of problems, loosening, dislocation, wear, blood clot, pulmonary embolism, , gait dysfunction, stiffness, and other risks as discussed in the office. Patient elects to proceed and the consent form has been signed. Operative Findings: The operative findings are consistent with severe osteoarthritis of the right knee Description of Procedure: The patient was seen in the preoperative area, the consent was reviewed and the operative site was marked with a skin marker. The patient verified the procedure and the operative site. An adductor canal pain catheter and an iPACK block were placed by anesthesia in the preoperative area. The patient was then brought to the operating room and positioned on the operating room table in the supine position. Preoperative antibiotics and a gram of tranexamic acid were given intravenously. A spinal anesthetic was administered by the anesthesia department. Care was taken to make sure that all pressure points were a dequately padded. A tourniquet was placed on the upper thigh and the lower extremity was prepped with ChloraPrep and draped in usual sterile fashion. A universal time-out was then performed which confirmed the patient's name, surgical site, ALLERGIES, and consent. The lower extremity was then exsanguinated and tourniquet was inflated to 250 mmHg. A standard anterior midline approach to the knee was performed. The skin and subcutaneous tissue were sharply dissected down to the patellar tendon. A medial parapatellar arthrotomy was then performed. The knee was then extended, the patellar was everted, and the knee was flexed. The infra-patellar fat pad was removed in order to enhance exposure. The anterior horns of both menisci were excised, and a release was performed to the posterior medial aspect of the knee. On gross visual inspection, there was complete loss of articular cartilage in the medial and patellofemoral joint spaces. There was also significant cartilage damage in the lateral compartment. There were multiple periarticular osteophytes globally about the knee which were then removed with a Ronguer. The femoral canal was then opened with the 9.5 mm intramedullary drill. The 8 mm intramedullary lexi was then inserted into the femoral canal with the distal femoral cutting guide set for 5 of valgus. The distal femoral cutting block was then pinned in place. The intramedullary lexi was then removed, and the distal femur was then cut. The cutting block was then removed and the cut was checked for symmetry. The resected bone was then measured to confirm the appropriate distal femoral resection. Next, the sizing guide was then placed and set for 3 external rotation based off of the epicondylar axis and Osborne's line. Pins were then placed and the drill holes, and the femur was sized with the sizing stylus. The pins were then removed, and the sizing guide was then removed. The spikes of the appropriate size femoral block was then placed into the predrilled holes, and malleted into place. Two 45 mm pins were then placed into the fixation holes on the cutting block. An zulma wing was then used to ensure there would be no notching with the anterior cut. The anterior condyles were cut without notching. The anterior chord cut was then performed, followed by the posterior cut, posterior chamfer cut, and the anterior chamfer cut. The collateral ligaments were protected during the entire process. The cutting block was then removed. Any remaining bone and osteophytes were removed from the femur with a Ronguer. Attention was then directed to the tibia. The remaining ACL was removed with a Ronguer, and the tibia was then gently subluxed forward with a large bent knee retractor. Any remaining menisci were excised. The posterior lateral corner was cauterized in order to coagulate the lateral geniculate artery. The extra medullary tibial cutting guide was then placed, set for the appropriate rotation, slope, and depth of resection. The proximal tibia cutting guide was then pinned in place. Proximal tibia was then cut and sized. A curved osteotome was then used to remove any posterior osteophytes from the distal femu r. The femoral trial was placed. A narrow saw blade was then used to remove the anterior intracondylar femoral bone. The CR notch trial was then placed. The tibial trial was placed with the appropriate-sized insert. The knee was able to fully extend and flex to 130 and was stable throughout all range of motion. The knee was then extended and the patella was everted. Patella was then measu red, and then using an osteotomy guide, the patella was cut at the appropriate level. The patellar component was sized. The patellar drill guide was placed and the patella was drilled. The patella trial was then placed. The knee was then taken through range of motion with the patella trial and the patella tracked normally using the no thumbs technique. The patella trial was then removed. The knee was then flexed and lug holes were drilled through the femoral trial and the femoral trial was then removed. The tibial was then re- exposed, and the tibial broach guide was then pinned in place after it was set for the appropriate rotation to allow for the most coverage without overhang. The tibia was then reamed and broached. The femoral canal was plugged with autologous bone. The cut surfaces of bone were then irrigated with pulsatile lavage. The knee was also irrigated with Irrisept solution. The components were then opened, the cement was mixed. Cement was placed on the backside of the femoral, tibial, and patellar components. Cement was then applied to the tibial surface and pressurized into the surface using finger pressurization technique. The tibial component was then applied and excess cement was removed after it was impacted securely noted to be flush with the cut surface. In similar fashion, the cement was applied to the cut femoral surface, pressurized and using finger pressurization the component was impacted in place. Excess cement was removed. The polyethylene spacer was then implanted and locked into position. Patellar component was then applied in a similar technique and the patellar clamp was used to hold patella in place while the cement hardened. The knee was held in full extension while the cement hardened. Once the cement had fully hardened, the knee was reinspected. Any other cement extrusion was removed the final range of motion testing showed range of motion from 0-130 with excellent stability, both medial and laterally and appropriate alignment of the leg. Patella tracked normally. After the cemented hardened, the tourniquet was released and hemostasis was obtained. A second gram of transexamic acid was given intravenously. The knee was again irrigated. The knee was again taken through range of motion and found to be stable throughout all range of motion of 0-130, and the patella tracked normally. The fascia was then closed with 0 Vicryl followed by #2 strata fix suture. The subcutaneous tissue was closed with 3-0 Vicryl and 3-0 strata fix. Exofin glue was used for the skin and placed with the knee in flexion. After the glue had dried, and Optafoam silver impregnated dressing was applied. A lightly compressive dressing was applied using web roll and Mark wrap. Patient was then transferred to the stretcher and taken to recovery room in stable condition. Sponge and needle counts were correct. The periodontal assistant LISBETH Velasquez was required due the complexity surgery and the need for a skilled surgical technologist. She assisted in positioning, draping, retraction, and closure of the wound.
[2024-10-24] MEDS ORDERED: ONDANSETRON 4 MG/2 ML VIAL IVP PRN (08:53)
[2024-10-24] MEDS ORDERED: MAGNESIUM HYDROXIDE 2,400 MG/30 ML CUP PO PRN (08:53)
[2024-10-24] MEDS ORDERED: NA PHOS,M-B/NA PHOS,DI-BA 133 ML ENEMA RECTAL PRN (08:53)
[2024-10-24] MEDS ORDERED: NALOXONE 0.4 MG/ML 1 ML VIAL IV PRN (08:53)
[2024-10-24] MEDS ORDERED: HYDROcodone/APAP 7.5-325MG 1 EACH TAB PO PRN (08:56)
[2024-10-24 09:11] LABS: Glucose,Whole Blood 205 mg/dL (70-110)
--- NOTE | 2024-10-24 09:24 | XR ---
EXAMINATION TYPE: XR knee limited RT DATE OF EXAM: 10/24/2024 9:17 AM COMPARISON: None CLINICAL INDICATION: Female, 64 years old with history of Evaluation for Postop abnormality and align ment; PHH, pain TECHNIQUE: XR knee limited RT 2 views submitted. FINDINGS: Status post total knee arthroplasty changes with hardware in appropriate alignment and in tact. No evidence of fracture. Subcutaneous lucencies and lucencies within the joint consistent with surgical changes. IMPRESSION: Status post total knee arthroplasty changes with hardware intact and appropriate alignment. No fractu res identified. [facility], , 10/24/2024 9:21 AM
[2024-10-24] MEDS: ROPIVACAINE 1,100 MG, SODIUM CHLORIDE 0.9% 500 ML 330 ML, EMPTY PAIN BALL 1 EACH MISCELLANE PRN (09:31)
[2024-10-24] MEDS: KETOROLAC 15 MG/ML 1 ML VIAL IVP PRN (11:05)
[2024-10-24] MEDS: HYDROcodone/APAP 7.5-325MG 1 EACH TAB PO PRN (12:24)
[2024-10-24] MEDS: SODIUM CHLORIDE 0.9% 1,000 ML IV SCH (12:32)
[2024-10-24] MEDS: LACTATED RINGERS 1,000 ML IV SCH (12:32)
[2024-10-24 17:24] LABS: Glucose,Whole Blood 236 mg/dL (70-110)
[2024-10-24 20:25] LABS: Glucose,Whole Blood 244 mg/dL (70-110)
--- NOTE | 2024-10-24 20:50 | P.CONS ---
History of Present Illness - Reason for Consult Consult date: 10/24/24 Medical management Requesting physician: Wilber Rodriguez - Chief Complaint Right knee surgery - History of Present Illness Very pleasant 64-year-old patient follows with Dr. Ash.Chronic medical condition include diet-controlled diabetes, hypertension, hyperlipidemia, arthritis in the joints. Patient had ureteral stents. Also has a pacemaker for irregular heartbeat. Patient is undergone right total knee arthroplasty. Postprocedure pain is controlled. No nausea vomiting. Denies any other coronary artery disease. Review of systems: GEN.: Tired EYES: None HEENT: None NECK: None RESPIRATORY: None CARDIOVASCULAR: None GASTROINTESTINAL: None GENITOURINARY: None MUSCULOSKELETAL: [Joint pains LYMPHATICS: None HEMATOLOGICAL: None PSYCHIATRY: None NEUROLOGICAL: None Social history: Denies any history of smoking alcohol. . Physical examination: VITAL SIGNS: 97.8, 62, 17, 104 x 69, 93% room air GENERAL: BMI 43.1, reclining bed awake comfortable. EYES: Pupils equal. Conjunctiva sara l. HEENT: External appearance of nose and ears normal, oral cavity grossly normal. NECK: JVD not raised; masses not palpable. HEART: First and second heart sounds are normal; no edema. LUNGS: Respiratory rate normal; clear to auscultation. ABDOMEN: Soft, nontender, liver spleen not palpable, no masses palpable. PSYCH: Alert and oriented x3; mood and affect sara l. MUSCULOSKELETAL:No Clubbing/cyanosis;muscles-grossly intact. Dressing of the ri ght knee. OA in other joints NEUROLOGICAL: Cranial nerves grossly intact; no facial asymmetry, power and sensation grossly intact. LYMPHATICS: No lymph nodes palpable in the axilla and neck INVESTIGATIONS, reviewed in the clinical context: October 24, 2024: Potassium 4.5 BUN 20 creatinine 0.75 October 02, 2024: Hemoglobin 12.4 platelets 207 white count 6.9 Assessment plan: - Right total knee arthroplasty Pain control. Aspirin 325 twice daily for daily prophylaxis. IV cefazolin given for infection prophylaxis. 1 dose of Decadron given. - Diabetes mellitus type 2, diet controlled - Primary osteoarthritis Use pain medication as needed - Essential hypertension Imdur ER. Cozaar. Lopressor. Hold off amlodipine for now - Pacemaker - Hyperlipidemia Lipitor 20 mg nightly - Morbid obesity BMI 43.1 Weight loss measures Care was discussed with the patient. Questions answered. Thank you Dr Rodriguez Past Medical History Past Medical History: Asthma, Diabetes Mellitus, Hyperlipidemia, Hypertension, Liver Disease, Osteoarthritis (OA), Syncope Additional Past Medical History / Comment(s): Hx Asthma as a child. Hx Hepatitis as a teenager, no issues since. Hx Migraines in her 30's. Born with abnormal ureters, hx ureteral stents and tubes, none currently. History of Any Multi-Drug Resistant Organisms: None Reported Past Surgical History: Section, Heart Catheterization, Hysterectomy, Joint Replacement, Orthopedic Surgery, Pacemaker Additional Past Surgical History / Comment(s): Ttotal left knee replacement, tubes and stents in ureters, partial hysterectomy, then had ovaries removed later. Past Anesthesia/Blood Transfusion Reactions: Postoperative Nausea & Vomiting (PONV) Type of Cardiac Device: Permanent Pacemaker Device Placement Date:: Past Psychological History: No Psychological Hx Reported Smoking Status: Never smoker Past Alcohol Use History: None Reported Past Drug Use History: None Reported - Past Family History Mother Family Medical History: Cancer Father Family Medical History: Cancer Medications and Allergies Home Medications Medication Instructions Recorded Confirmed Type Atorvastatin [Lipitor] 20 mg PO HS 11/29/19 10/19/24 History Cinnamon Bark [Cinnamon] 1,000 mg PO DAILY 11/29/19 10/19/24 History Furosemide [Lasix] 20 mg PO QAM 11/29/19 10/19/24 History Milk Thistle 175 mg PO DAILY 11/29/19 10/19/24 History Turmeric Root Extract [Turmeric] 500 mg PO DAILY 02/03/20 10/19/24 History Metoprolol Tartrate [Lopressor] 50 mg PO BID #60 tab 06/11/20 10/19/24 Rx Aspirin EC [Ecotrin Low Dose] 81 mg PO DAILY #30 tab 04/11/22 10/19/24 Rx Garlic 1,000 mg PO DAILY 10/19/24 10/19/24 History Isosorbide Mononitrate ER [Imdur] 60 mg PO QAM 10/19/24 10/19/24 History Losartan [Cozaar] 50 mg PO HS 10/19/24 10/19/24 History Magnesium 250 mg PO HS 10/19/24 10/19/24 History Otc Allergy Pill 25 mg PO DAILY 10/19/24 10/19/24 History Spironolactone [Aldactone] 25 mg PO QAM 10/19/24 10/19/24 History amLODIPine [Norvasc] 10 mg PO HS 10/19/24 10/19/24 History Aspirin 325 mg PO BID #60 tab 10/24/24 Rx HYDROcodone/APAP 7.5-325MG [[place] 1 - 2 tab PO Q6H PRN #32 tab 10/24/24 Rx 7.5-325] Sennosides [Senokot] 2 tab PO DAILY PRN #60 tablet 10/24/24 Rx Allergies Allergy/AdvReac Type Severity Reaction Status Date / Time cephalexin [From Keflex] Allergy Rash/Hives Verified 10/19/24 11:32 azithromycin AdvReac Unknown states Verified 10/19/24 11:32 [From Zithromax Z-Sylvester] public relations player told her not to take. levofloxacin [From Levaquin] AdvReac Unknown states Verified 10/19/24 11:32 public relations player told her not to take. Narcotics AdvReac Unknown Rapid Uncoded 10/19/24 11:32 Heart Rate, Insomnia Physical Exam Vitals: Vital Signs Temp Pulse Pulse Resp BP BP Pulse Ox 10/24/24 13:31 97.8 F 62 17 104/69 93 L 10/24/24 12:07 97.6 F 55 L 17 94/58 96 10/24/24 11:30 55 L 16 102/54 92 L 10/24/24 11:00 55 L 16 101/50 92 L 10/24/24 10:46 55 L 16 92/78 92 L 10/24/24 10:16 55 L 14 133/66 97 10/24/24 09:46 55 L 14 129/57 95 10/24/24 09:31 55 L 12 126/57 95 10/24/24 09:16 55 L 12 118/60 95 10/24/24 09:01 55 L 13 104/57 100 10/24/24 08:46 97.0 F L 56 L 15 112/58 97 10/24/24 06:59 55 L 18 120/59 98 10/24/24 06:17 97.1 F L 75 18 123/63 96 Intake and Output 10/24/24 10/24/24 10/24/24 06:59 14:59 22:59 Intake Total 200 651 880 Output Total 30 Balance 200 621 880 Intake: IV 200 651 Intake, IV Titration 400 Amount Sodium Chloride 0.9% 1, 350 000 ml @ 70 mls/hr IV . [id number] KIM Rx#:[id number] ceFAZolin 2 gm In Sodium 50 Chloride 0.9% 50 ml @ 100 mls/hr IVPB Q8HR KIM Rx# :[id number] Oral 480 Output: Estimated Blood Loss 30 Other: # Voids 1 1 Weight 96.7 kg 96.7 kg Results CBC & Chem 7: 10/24/24 06:12 Labs: Abnormal Lab Results - Last 24 Hours (Table) 10/24/24 10/24/24 10/24/24 Range/Units 06:12 06:12 09:10 BUN 20 H (7-17) mg/dL Glucose 159 H (74-99) mg/dL POC Glucose (mg/dL) 156 H 205 H (70-110) mg/dL 10/24/24 10/24/24 Range/Units 17:13 20:23 BUN (7-17) mg/dL Glucose (74-99) mg/dL POC Glucose (mg/dL) 236 H 244 H (70-110) mg/dL
[2024-10-24] MEDS: ATORVASTATIN 20 MG TAB PO SCH (22:05)
[2024-10-24] MEDS: METOPROLOL TARTRATE 50 MG TAB PO SCH (22:05)
[2024-10-24] MEDS: SENNOSIDES-DOCUSATE SODIUM 1 EACH TAB PO SCH (22:05)
[2024-10-24] MEDS: ASPIRIN 325 MG TAB PO SCH (22:05)
[2024-10-25 03:44] VITALS: PULSE 63
[2024-10-25 05:56] LABS: Glucose,Whole Blood 182 mg/dL (70-110)
[2024-10-25 08:14] LABS: Basophils # (A) 0.04 X 10*3/uL (0.00-0.10); Basophils % (A) 0.3 %; Eosinophils # (A) 0 X 10*3/uL (0.04-0.35); Eosinophils % (A) 0 %; HCT 36.1 % (37.2-46.3); HGB 12.0 g/dL (12.0-15.0); Immature Grans, Automated 0.60 %; Lymphocytes # (A) 0.88 X 10*3/uL (0.90-5.00); Lymphocytes % (A) 6.1 %; MCH 30.8 pg (27.0-32.0); MCHC 33.2 g/dL (32.0-37.0); MCV 92.6 FL (80.0-97.0); Monocytes # (A) 1.14 X 10*3/uL (0.20-1.00); Monocytes % (A) 7.9 %; NRBC Per 100 WBC 0 X 10*3/uL (0.00-0.01); Neutrophils # (A) 12.19 X 10*3/uL (1.80-7.70); Neutrophils % (A) 85.1 %; Platelet Count 220 X 10*3/uL (140-440); RBC 3.90 X 10*6/uL (4.10-5.20); RDW 12.7 % (11.5-14.5); WBC 14.34 X 10*3/uL (4.50-10.00)
[2024-10-25 09:15] VITALS: BP 152/73; RESP 17; TEMP 98.9
[2024-10-25] MEDS: FUROSEMIDE 20 MG TAB PO SCH (10:33)
[2024-10-25] MEDS: ISOSORBIDE MONONITRATE ER 60 MG TAB.ER.24H PO SCH (10:33)
[2024-10-25] MEDS: SPIRONOLACTONE 25 MG TAB PO SCH (10:33)
--- NOTE | 2024-10-25 11:04 | P.DS ---
Providers Expected date of discharge: 10/25/24 Attending physician: Wilber Rodriguez Consults: 10/24/24 08:53 Consult Physician Routine Consulting Provider: Jono Soto Consult Reason/Comments: medical management Do you want consulting provider notified?: Yes Primary care physician: Steve Ash - Discharge Diagnosis(es) (1) Osteoarthritis of right knee Current Visit: Yes Status: Acute (2) S/P total knee arthroplasty Current Visit: Yes Status: Acute Hospital Course: This is a 64-year-old female with known history of degenerative arthritis of the right knee. The patient presented for evaluation as an outpatient. After discussion and consideration patient elects to proceed with total knee arthroplasty. The patient is seen preoperatively by Dr. Rodriguez and medically cleared for surgery by their primary care physician. Patient is admitted to [facility] on 10/24/2024 for total knee arthroplasty. The procedure is performed without complication or sequelae. The patient is doing well postoperatively. Labs and vital signs are stable on day of discharge. On day of discharge patient's knee incision is healing well. There is minimal erythema. There is no drainage noted at this time. There is minimal soft tissue swelling to the knee. Patient has full foot and ankle motion without difficulty or pain. Calf is soft and nontender to palpation. Neurovascular status to the right lower extremity is intact. Patient is discharged home in good condition. Please see med rec for accurate list of home medications. Plan - Discharge Summary Discharge Rx Participant: No New Discharge Prescriptions: New HYDROcodone/APAP 7.5-325MG [[place] 7.5-325] 1 - 2 tab PO Q6H PRN #32 tab PRN Reason: Pain Sennosides [Senokot] 2 tab PO DAILY PRN #60 tablet PRN Reason: Constipation Aspirin 325 mg PO BID #60 tab No Action Cinnamon Bark [Cinnamon] 1,000 mg PO DAILY Atorvastatin [Lipitor] 20 mg PO HS Furosemide [Lasix] 20 mg PO QAM Milk Thistle 175 mg PO DAILY Turmeric Root Extract [Turmeric] 500 mg PO DAILY Metoprolol Tartrate [Lopressor] 50 mg PO BID #60 tab Aspirin EC [Ecotrin Low Dose] 81 mg PO DAILY #30 tab Isosorbide Mononitrate ER [Imdur] 60 mg PO QAM amLODIPine [Norvasc] 10 mg PO HS Garlic 1,000 mg PO DAILY Magnesium 250 mg PO HS Otc Allergy Pill 25 mg PO DAILY Losartan [Cozaar] 50 mg PO HS Spironolactone [Aldactone] 25 mg PO QAM Discharge Medication List Atorvastatin [Lipitor] 20 mg PO HS 11/29/19 [History] Cinnamon Bark [Cinnamon] 1,000 mg PO DAILY 11/29/19 [History] Furosemide [Lasix] 20 mg PO QAM 11/29/19 [History] Milk Thistle 175 mg PO DAILY 11/29/19 [History] Turmeric Root Extract [Turmeric] 500 mg PO DAILY 02/03/20 [History] Metoprolol Tartrate [Lopressor] 50 mg PO BID #60 tab 06/11/20 [Rx] Aspirin EC [Ecotrin Low Dose] 81 mg PO DAILY #30 tab 04/11/22 [Rx] Garlic 1,000 mg PO DAILY 10/19/24 [History] Isosorbide Mononitrate ER [Imdur] 60 mg PO QAM 10/19/24 [History] Losartan [Cozaar] 50 mg PO HS 10/19/24 [History] Magnesium 250 mg PO HS 10/19/24 [History] Otc Allergy Pill 25 mg PO DAILY 10/19/24 [History] Spironolactone [Aldactone] 25 mg PO QAM 10/19/24 [History] amLODIPine [Norvasc] 10 mg PO HS 10/19/24 [History] Aspirin 325 mg PO BID #60 tab 10/24/24 [Rx] HYDROcodone/APAP 7.5-325MG [[place] 7.5-325] 1 - 2 tab PO Q6H PRN #32 tab 10/24/24 [Rx] Sennosides [Senokot] 2 tab PO DAILY PRN #60 tablet 10/24/24 [Rx] Follow up Appointment(s)/Referral(s): Wilber Rodriguez DO [Doctor of Osteopathic Medicine] - 11/08/24 2:00 pm Activity/Diet/Wound Care/Special Instructions: Weightbearing as tolerated with a walker. Leave dressing intact. Dressing may be removed by home care nurse or by patient in 7 days. Then change dressing twice daily until follow up. May shower with initial dressing intact and after removal. If dressing become saturated, please remove. Recommend use of compression stockings daily until follow up to help prevent swelling and blood clots. May remove at night before sleeping. Please take aspirin 325mg twice daily for 30 days to prevent blood clots. Please follow up with [facility] and call with any questions or concerns, . Discharge Disposition: HOME WITH HOME HEALTH SERVICES
[2024-10-25 11:57] LABS: Glucose,Whole Blood 199 mg/dL (70-110)
--- NOTE | 2024-10-25 13:26 | P.PN ---
Progress Note - Text Progress Note Date: 10/25/24 Postoperative day # 1 status post total knee arthroplasty, and adductor canal catheter placed for postoperative analgesia, currently at ropivacaine 0.2% 8 mL per hour and continuous infusion, visual analogue scale is 3-4/10, patient using oral pain medication for breakthrough pain. Assessment and plan= Acute postoperative pain, adductor canal catheter for pain control, pain is well controlled we'll continue the same management.
--- NOTE | 2024-10-25 17:19 | P.PN ---
Progress Note - Text Progress Note Date: 10/25/24 - Chief Complaint Right knee surgery - History of Present Illness Very pleasant 64-year-old patient follows with Dr. Ash.Chronic medical condition include diet-controlled diabetes, hypertension, hyperlipidemia, arthritis in the joints. Patient had ureteral stents. Also has a pacemaker for irregular heartbeat. Patient is undergone right total knee arthroplasty. Postprocedure pain is controlled. No nausea vomiting. Denies any other coronary artery disease. October 25: Doing well. Some pain at the operative site. No nausea vomiting. No dizziness no lightheadedness. Did tolerate some diet. Denies any urinary or respiratory symptoms. Social history: Denies any history of smoking alcohol. . Physical examination: VITAL SIGNS: 98.9, 63, 17, 152 x 73, 97% room air GENERAL: BMI 43.1, comfortable EYES: Pupils equal. Conjunctiva sara l. HEENT: External appearance of nose and ears normal, oral cavity grossly normal. NECK: JVD not raised; masses not palpable. HEART: First and second heart sounds are normal; no edema. LUNGS: Respiratory rate normal; clear to auscultation. ABDOMEN: Soft, nontender, liver spleen not palpable, no masses palpable. PSYCH: Alert and oriented x3; mood and affect sara l. MUSCULOSKELETAL:No Clubbing/cyanosis;muscles-grossly intact. Dressing of the right knee. OA in other joints INVESTIGATIONS, reviewed in the clinical context: October 25: White count 14.3 hemoglobin 12 platelets 220 October 24, 2024: Potassium 4.5 BUN 20 creatinine 0.75 October 02, 2024: Hemoglobin 12.4 platelets 207 white count 6.9 Assessment plan: - Right total knee arthroplasty Pain control. Aspirin 325 twice daily for daily prophylaxis. IV cefazolin given for infection prophylaxis. 1 dose of Decadron given. - Diabetes mellitus type 2, diet controlled - Leukocytosis likely reactive from surgery. Denies any respiratory urinary symptoms - Primary osteoarthritis Use pain medication as needed - Essential hypertension Imdur ER. Cozaar. Lopressor. Amlodipine - Pacemaker - Hyperlipidemia Lipitor 20 mg nightly - Morbid obesity BMI 43.1 Weight loss measures Doing well. Discussed. Thank you Dr Rodriguez Past Medical History Past Medical History: Asthma, Diabetes Mellitus, Hyperlipidemia, Hypertension, Liver Disease, Osteoarthritis (OA), Syncope Additional Past Medical History / Comment(s): Hx Asthma as a child. Hx Hepatitis as a teenager, no issues since. Hx Migraines in her 30's. Born with abnormal ureters, hx ureteral stents and tubes, none currently. History of Any Multi-Drug Resistant Organisms: None Reported Past Surgical History: Section, Heart Catheterization, Hysterectomy, Joint Replacement, Orthopedic Surgery, Pacemaker Additional Past Surgical History / Comment(s): Ttotal left knee replacement, tubes and stents in ureters, partial hysterectomy, then had ovaries removed later. Past Anesthesia/Blood Transfusion Reactions: Postoperative Nausea & Vomiting (PONV) Type of Cardiac Device: Permanent Pacemaker Device Placement Date:: Past Psychological History: No Psychological Hx Reported Smoking Status: Never smoker Past Alcohol Use History: None Reported Past Drug Use History: None Reported
== END 2024-10-25 15:29 | disposition home health service (06) ==
LOC: OR 05:36 → 4SSUR 08:46 → OR 10-25 15:29
PROVIDERS: ATTEND Orthopaedic Surgery
DX: M17.11 Unilateral primary osteoarthritis, right knee (principal); J45.909 Unspecified asthma, uncomplicated; I10 Essential (primary) hypertension; E11.9 Type 2 diabetes mellitus without complications; E66.01 Morbid (severe) obesity due to excess calories; E78.5 Hyperlipidemia, unspecified; Z68.41 Body mass index [BMI] 40.0-44.9, adult; Z90.710 Acquired absence of both cervix and uterus; Z90.722 Acquired absence of ovaries, bilateral; Z95.0 Presence of cardiac pacemaker; Z96.653 Presence of artificial knee joint, bilateral; Z88.1 Allergy status to other antibiotic agents; Z88.5 Allergy status to narcotic agent; Z79.82 Long term (current) use of aspirin; Z79.899 Other long term (current) drug therapy
CPT/HCPCS: 97161; 64448; 64473; 80048; 85025; 73560; 27447; C1713; C1776; C1751; J2250; J1100; J0690 ×2; J2405; J2795; J1885 ×2